=== PATIENT | male | born 1950 | race Caucasian/White ===

== ENCOUNTER → 2019-03-09 10:45 | Outpatient (BNVA) | payer MEDICARE, SELFPAY | PROVIDERS: Family Provider Nurse Practitioner Family; PCP Nurse Practitioner Family; Visit Provider Family Medicine | DX: I48.91 Unspecified atrial fibrillation (principal) | CPT/HCPCS: 85610 ==

== ENCOUNTER → 2019-03-23 11:34 | Outpatient (BNVA) | payer MEDICARE, SELFPAY | PROVIDERS: Family Provider Nurse Practitioner Family; PCP Nurse Practitioner Family; Visit Provider Nurse Practitioner Family | DX: I48.91 Unspecified atrial fibrillation (principal) | CPT/HCPCS: 85610 ==

== ENCOUNTER → 2019-03-30 09:06 | Outpatient (BNVA) | payer MEDICARE, SELFPAY | PROVIDERS: Family Provider Nurse Practitioner Family; PCP Nurse Practitioner Family; Visit Provider Nurse Practitioner Family | DX: I48.91 Unspecified atrial fibrillation (principal) | CPT/HCPCS: 85610 ==

== ENCOUNTER → 2019-04-13 09:33 | Outpatient (BNVA) | payer MEDICARE, SELFPAY | PROVIDERS: Visit Provider Family Medicine | DX: I48.91 Unspecified atrial fibrillation (principal) | CPT/HCPCS: 85610 ==

== ENCOUNTER → 2019-05-04 08:45 | Outpatient (BNVA) | payer MEDICARE, SELFPAY | PROVIDERS: Visit Provider Family Medicine | DX: I48.91 Unspecified atrial fibrillation (principal) | CPT/HCPCS: 85610 ==

== ENCOUNTER → 2019-05-11 07:59 | Outpatient (BNVA) | payer MEDICARE, SELFPAY | PROVIDERS: Visit Provider Family Medicine | DX: I48.91 Unspecified atrial fibrillation (principal) | CPT/HCPCS: 85610 ==

== ENCOUNTER → 2019-05-13 11:08 | Outpatient (BNVA) | payer MEDICARE, SELFPAY | PROVIDERS: Visit Provider Nurse Practitioner Family | DX: I48.91 Unspecified atrial fibrillation (principal); E78.5 Hyperlipidemia, unspecified; I12.9 Hypertensive chronic kidney disease with stage 1 through stage 4 chronic kidney disease, or unspecified chronic kidney disease; N18.9 Chronic kidney disease, unspecified | CPT/HCPCS: 80053; 80061; 85025 ==

== ENCOUNTER → 2019-05-18 10:20 | Outpatient (BNVA) | payer MEDICARE, SELFPAY | PROVIDERS: Visit Provider Nurse Practitioner Family | DX: I48.91 Unspecified atrial fibrillation (principal) | CPT/HCPCS: 85610 ==

== ENCOUNTER → 2019-05-25 08:13 | Outpatient (BNVA) | payer MEDICARE, SELFPAY | PROVIDERS: Visit Provider Nurse Practitioner Family | DX: I48.91 Unspecified atrial fibrillation (principal) | CPT/HCPCS: 85610 ==

== ENCOUNTER → 2019-06-01 09:40 | Outpatient (BNVA) | payer MEDICARE, SELFPAY | PROVIDERS: Visit Provider Family Medicine | DX: I48.91 Unspecified atrial fibrillation (principal) | CPT/HCPCS: 85610 ==

== ENCOUNTER → 2019-06-08 08:09 | Outpatient (BNVA) | payer MEDICARE, SELFPAY | PROVIDERS: Visit Provider Nurse Practitioner Family | DX: I48.91 Unspecified atrial fibrillation (principal) | CPT/HCPCS: 85610 ==

== ENCOUNTER → 2019-06-15 10:22 | Outpatient (BNVA) | payer MEDICARE, SELFPAY | PROVIDERS: Visit Provider Nurse Practitioner Family | DX: I48.91 Unspecified atrial fibrillation (principal) | CPT/HCPCS: 85610 ==

== ENCOUNTER → 2019-06-22 11:05 | Outpatient (BNVA) | payer SELFPAY | PROVIDERS: Visit Provider Nurse Practitioner Family | DX: I48.91 Unspecified atrial fibrillation (principal) | CPT/HCPCS: 85610 ==

== ENCOUNTER → 2019-07-06 09:38 | Outpatient (BNVA) | payer MEDICARE, SELFPAY | PROVIDERS: Visit Provider Nurse Practitioner Family | DX: I48.91 Unspecified atrial fibrillation (principal) | CPT/HCPCS: 85610 ==

== ENCOUNTER → 2019-07-13 11:10 | Outpatient (BNVA) | payer MEDICARE, SELFPAY | PROVIDERS: PCP Nurse Practitioner Family; Visit Provider Nurse Practitioner Family | DX: I48.91 Unspecified atrial fibrillation (principal) | CPT/HCPCS: 85610 ==

== ENCOUNTER → 2019-07-20 09:39 | Outpatient (BNVA) | payer MEDICARE, SELFPAY | PROVIDERS: PCP Nurse Practitioner Family; Visit Provider Nurse Practitioner Family | DX: I48.11 Longstanding persistent atrial fibrillation (principal) | CPT/HCPCS: 85610 ==

== ENCOUNTER → 2019-08-03 10:28 | Outpatient (BNVA) | payer MEDICARE, SELFPAY | PROVIDERS: PCP Nurse Practitioner Family; Visit Provider Nurse Practitioner Family | DX: I48.11 Longstanding persistent atrial fibrillation (principal) | CPT/HCPCS: 85610 ==

== ENCOUNTER → 2019-08-24 08:45 | Outpatient (BNVA) | payer MEDICARE, SELFPAY | PROVIDERS: PCP Nurse Practitioner Family; Visit Provider Nurse Practitioner Family | DX: I48.11 Longstanding persistent atrial fibrillation (principal) | CPT/HCPCS: 85610 ==

== ENCOUNTER → 2019-09-07 09:35 | Outpatient (BNVA) | payer MEDICARE, SELFPAY | PROVIDERS: PCP Nurse Practitioner Family; Visit Provider Nurse Practitioner Family | DX: I48.11 Longstanding persistent atrial fibrillation (principal) | CPT/HCPCS: 85610 ==

== ENCOUNTER → 2019-10-08 08:51 | Outpatient (BNVA) | payer MEDICARE, SELFPAY | PROVIDERS: PCP Nurse Practitioner Family; Visit Provider Nurse Practitioner Family | DX: I48.11 Longstanding persistent atrial fibrillation (principal) | CPT/HCPCS: 85610 ==

== ENCOUNTER → 2019-10-14 15:13 | Outpatient (BNVA) | payer MEDICARE, SELFPAY | PROVIDERS: PCP Nurse Practitioner Family; Referring Provider Family Medicine; Visit Provider Family Medicine | DX: I48.11 Longstanding persistent atrial fibrillation (principal) | CPT/HCPCS: 85610 ==

== ENCOUNTER → 2019-10-21 13:48 | Outpatient (BNVA) | payer MEDICARE, SELFPAY | PROVIDERS: PCP Nurse Practitioner Family; Visit Provider Nurse Practitioner Family | DX: E78.49 Other hyperlipidemia (principal) | CPT/HCPCS: 85610 ==

== ENCOUNTER → 2019-10-26 11:41 | Outpatient (BNVA) | payer MEDICARE, SELFPAY | PROVIDERS: PCP Nurse Practitioner Family; Visit Provider Nurse Practitioner Family | DX: I48.11 Longstanding persistent atrial fibrillation (principal) | CPT/HCPCS: 85610 ==

== ENCOUNTER → 2019-11-12 15:39 | Outpatient (BNVA) | payer MEDICARE, SELFPAY | PROVIDERS: PCP Nurse Practitioner Family; Visit Provider Nurse Practitioner Family | DX: E78.49 Other hyperlipidemia (principal); N18.9 Chronic kidney disease, unspecified; I48.11 Longstanding persistent atrial fibrillation | CPT/HCPCS: 80053; 80061; 85025; 85610 ==

== ENCOUNTER → 2019-12-14 09:17 | Outpatient (BNVA) | payer MEDICARE, OTHER, SELFPAY | PROVIDERS: PCP Nurse Practitioner Family; Visit Provider Nurse Practitioner Family | DX: I48.11 Longstanding persistent atrial fibrillation (principal) | CPT/HCPCS: 85610 ==

== ENCOUNTER → 2020-01-11 08:36 | Outpatient (BNVA) | payer MEDICARE, OTHER, SELFPAY | PROVIDERS: PCP Nurse Practitioner Family; Visit Provider Nurse Practitioner Family | DX: I48.11 Longstanding persistent atrial fibrillation (principal) | CPT/HCPCS: 85610 ==

== ENCOUNTER → 2020-02-08 10:16 | Outpatient (BNVA) | payer MEDICARE, OTHER, SELFPAY | PROVIDERS: PCP Nurse Practitioner Family; Visit Provider Nurse Practitioner Family | DX: I10 Essential (primary) hypertension (principal); I48.11 Longstanding persistent atrial fibrillation | CPT/HCPCS: 80053; 80061; 85025; 85610; G0103 ==

== ENCOUNTER → 2020-06-17 15:11 | Outpatient (BNVA) | payer MEDICARE, OTHER, SELFPAY | PROVIDERS: PCP Nurse Practitioner Family; Visit Provider Nurse Practitioner Family | DX: I10 Essential (primary) hypertension (principal); I48.11 Longstanding persistent atrial fibrillation; N18.2 Chronic kidney disease, stage 2 (mild); E78.49 Other hyperlipidemia | CPT/HCPCS: 80053; 80061; 84443; 85025; 85610 ==

== ENCOUNTER 2020-10-21 15:46 | Emergency (ER) | payer MEDICARE, SELFPAY ==
[2020-10-21 16:48] VITALS: BP 167/80; PULSE 65; RESP 19; TEMP 37.1; O2SAT 92; BMI 28.2
[2020-10-21 16:53] VITALS: BP 167/80; PULSE 64; RESP 18; O2SAT 94
--- NOTE | 2020-10-21 17:06 | W.ED.BACK ---
HPI - Back Pain/Injury General: Chief Complaint: Back Pain/Injury Stated Complaint: BACK PAIN LAST NIGHT Time Seen by Provider: 10/21/20 16:57 History of Present Illness: HPI Narrative: Patient complains about mid upper back pain that he thinks he may be injured it yesterday while he is walking. Hurts for him to bend or twist get about the chair. He denies any fall. Denies chest pain shortness of breath or related problems. MD elicited complaint: back pain and back injury Pertinent past history: prior back pain Onset (ago): hour(s) Timing: intermittent Severity: mild Similar Symptoms Previously: Yes Quality: aching Location: thoracic spine Radiation: none Exacerbating factors: movement and walking Relieving factors: immobilization Context: turning/twisting Associated symptoms: Reports no associated symptoms; Deny abdominal pain, chills, fever(s), nausea or vomiting Review of Systems Const: Denies: fever(s), chills or body aches Eyes: Denies: change in vision or blurry vision ENMT: Denies: throat pain or nasal congestion Card: Denies: chest pain or dyspnea on exertion Resp: Denies: dyspnea, productive cough or non-productive cough GI: Denies: abdominal pain, nausea or vomiting : Denies: difficulty urinating Musc: Reports: back pain; Denies: extremity pain Skin/Breast: Denies: rash Neuro: Denies: headache(s) Psych: Denies: anxiety or depression Ankit/Lymph: Denies: easy bruising PFSH ED PFSH: Medical History CAD (coronary artery disease) CHF (congestive heart failure) CKD (chronic kidney disease) COPD (chronic obstructive pulmonary disease) Depression Erectile dysfunction History of CVA (cerebrovascular accident) Hx pulmonary embolism Hyperlipidemia Pulmonary embolism Surgical History Hx of angioplasty Hx of appendectomy Hx of hernia repair Hx of urethrotomy Social History Smoking and tobacco status: never smoked Second hand smoke exposure: No Alcohol intake: never Lives independently: Yes Household members: significant other Marital status: Current occupational status: disabled History of recent travel: No Current gender identity: Male Physical Exam Const: COMMON NORMALS: no acute distress, average body habitus and patient oriented x3 HENMT: COMMON NORMALS: normocephalic HEAD & SCALP: normal to inspection and normocephalic FACE & SINUS: normal facial exam OTHER: Hard of hearing Eye: COMMON NORMALS: conjunctivae normal GENERAL EYE: appearance normal, both eyes and all related structures CONJUNCTIVA: Yes conjunctivae normal Neck/C-Spine: COMMON NORMALS: no JVD Chest: COMMONS NORMALS: normal inspection of the chest Resp: COMMON NORMALS: normal respiratory effort and clear to auscultation bilaterally AUSCULTATION: clear to auscultation bilaterally Cardio: COMMON NORMALS: no JVD, regular rate and regular rhythm RATE: regular rate RHYTHM: regular rhythm GI: COMMON NORMALS: Normal to inspection, nondistended, normoactive bowel sounds present Back/Pelvis: THORACIC SPINE/UPPER BACK: Yes thoracic spinal tenderness Extremity: COMMON NORMALS: normal to inspection and full ROM Neuro: COMMON NORMALS: patient oriented x3 Course Vital Signs: Vital signs: Vital Signs Temperature 98.7 F 10/21/20 16:48 Pulse Rate 64 10/21/20 16:53 Respiratory Rate 18 10/21/20 16:53 Blood Pressure 167/80 10/21/20 16:53 Pulse Oximetry 94 10/21/20 16:53 MDM - Back Pain/Injury MDM Narrative: Medical decision making narrative: Patient with midthoracic back pain possible related to turning twisting yesterday when he is picking something up. Patient like some pain medication. Discharge Plan Discharge Patient Disposition: Home Clinical Impression: Thoracic back pain Qualifiers: Chronicity: chronic Back pain laterality: midline Qualified Code(s): M54.6 - Pain in thoracic spine Condition: Stable Prescriptions: New Celebrex 100 mg capsule 100 mg PO BID Qty: 20 RF: 0 No Action atorvastatin 40 mg tablet 40 mg PO DAILY Qty: 90 RF: 1 clopidogrel 75 mg tablet 75 mg PO DAILY Qty: 90 RF: 1 furosemide 20 mg tablet 20 mg PO DAILY Qty: 90 RF: 1 isosorbide mononitrate 60 mg tablet extended release 24 hr 60 mg PO DAILY Qty: 90 RF: 1 metoprolol tartrate 25 mg tablet 25 mg PO BID Qty: 180 RF: 1 nitroglycerin [Nitrostat] 0.4 mg tablet, sublingual 0.4 mg SUBLINGUAL Q5M PRNRF: 0 potassium chloride 10 mEq tablet extended release See Rx Instructions .ROUTE .COMPLEX Qty: 90 RF: 3 losartan 50 mg tablet 50 mg PO DAILY 90 Days Qty: 90 RF: 3 warfarin 2 mg tablet See Rx Instructions mg .ROUTE .COMPLEX Qty: 104 RF: 1 Discharge Orders: Discharge ED (Routine); Ordered 10/21/20 Ordered By: Devon Alvarez Referrals: Justyna Alvarado FNP [Primary Care Provider] - Discharge Diet: Usual diet Discharge Activity: Increase activity as tolerated Patient Instructions: Back Pain (ED) Activity Restrictions/Additional Instructions: Follow-up with medical provider as directed. Take medications as prescribed. Return to the ER or your medical provider if condition worsens. Please read and understand discharge instructions. If any questions ask please. Coding Level of Care Code ED [employer] for Milana Cárdenas Exam Comprehensive
--- NOTE | 2020-10-21 17:07 | XRR_ITS ---
PROCEDURE INFORMATION: Exam: XR Thoracic Spine Exam date and time: 10/21/2020 5:07 PM Age: 70 years old Clinical indication: Pain in thoracic spine TECHNIQUE: Imaging protocol: XR of the thoracic spine. Views: 3 views. COMPARISON: CR Chest 1 [place] [id number] 08/04/2017 6:37 PM FINDINGS: Bones/joints: No acute thoracic fractures. Unremarkable alignment.The thoracic spine demonstrates moderate degenerative changes at multiple levels. Soft tissues: Unremarkable. Heart/Mediastinum: Cardiac enlargement. Vasculature: Atherosclerotic plaques of thoracic aorta. XR/XR thoracic spine 3V* [id number] IMPRESSION: Negative for acute thoracic spine fracture.
[2020-10-21 18:02] VITALS: BP 167/80; PULSE 64; RESP 18; O2SAT 94
[2020-10-21] MEDS: predniSONE 10 mg Tablet PO (18:02)
[2020-10-21] MEDS: TRAMadol 50 mg Tablet PO (18:02)
== END 2020-10-21 18:03 | disposition home or self-care (01) ==
PROVIDERS: Emergency Provider Nurse Practitioner Family; PCP Nurse Practitioner Family
DX: M54.6 Pain in thoracic spine (principal); Z79.01 Long term (current) use of anticoagulants; Z79.02 Long term (current) use of antithrombotics/antiplatelets; I25.10 Atherosclerotic heart disease of native coronary artery without angina pectoris; I50.9 Heart failure, unspecified; J44.9 Chronic obstructive pulmonary disease, unspecified; Z86.73 Personal history of transient ischemic attack (TIA), and cerebral infarction without residual deficits; Z86.711 Personal history of pulmonary embolism; E78.5 Hyperlipidemia, unspecified
CPT/HCPCS: 72072; 99283; J7512

== ENCOUNTER → 2020-11-30 10:01 | Outpatient (BNVA) | payer MEDICARE, SELFPAY | PROVIDERS: PCP Nurse Practitioner Family; Visit Provider Nurse Practitioner Family | DX: I10 Essential (primary) hypertension (principal); R10.11 Right upper quadrant pain; R35.0 Frequency of micturition; N18.2 Chronic kidney disease, stage 2 (mild); I48.11 Longstanding persistent atrial fibrillation; I50.9 Heart failure, unspecified; E78.49 Other hyperlipidemia; I25.10 Atherosclerotic heart disease of native coronary artery without angina pectoris | CPT/HCPCS: 80053; 80061; 81003; 82607; 84443; 85025; 85610; 87086 ==

== ENCOUNTER → 2020-12-07 08:54 | Outpatient (BNVA) | payer MEDICARE, SELFPAY | PROVIDERS: PCP Nurse Practitioner Family; Visit Provider Nurse Practitioner Family | DX: I48.11 Longstanding persistent atrial fibrillation (principal) | CPT/HCPCS: 85610 ==

== ENCOUNTER → 2020-12-13 08:37 | Outpatient (BNVA) | payer MEDICARE, SELFPAY | PROVIDERS: PCP Nurse Practitioner Family; Visit Provider Nurse Practitioner Family | DX: I48.11 Longstanding persistent atrial fibrillation (principal) | CPT/HCPCS: 85610 ==

== ENCOUNTER → 2020-12-21 08:27 | Outpatient (BNVA) | payer MEDICARE, SELFPAY | PROVIDERS: PCP Nurse Practitioner Family; Visit Provider Nurse Practitioner Family | DX: I48.11 Longstanding persistent atrial fibrillation (principal); N39.0 Urinary tract infection, site not specified | CPT/HCPCS: 81003; 85610; 87077; 87086; 87184 ==

== ENCOUNTER → 2020-12-28 09:00 | Outpatient (BNVA) | payer MEDICARE, SELFPAY | PROVIDERS: PCP Nurse Practitioner Family; Visit Provider Family Medicine | DX: I48.11 Longstanding persistent atrial fibrillation (principal) | CPT/HCPCS: 85610 ==

== ENCOUNTER → 2021-01-11 08:15 | Outpatient (BNVA) | payer MEDICARE, SELFPAY | PROVIDERS: PCP Nurse Practitioner Family; Visit Provider Nurse Practitioner Family | DX: N39.0 Urinary tract infection, site not specified (principal); I48.11 Longstanding persistent atrial fibrillation | CPT/HCPCS: 81003; 85610; 87077; 87086; 87184 ==

== ENCOUNTER → 2021-01-25 09:28 | Outpatient (BNVA) | payer MEDICARE, SELFPAY | PROVIDERS: PCP Nurse Practitioner Family; Visit Provider Nurse Practitioner Family | DX: I48.11 Longstanding persistent atrial fibrillation (principal) | CPT/HCPCS: 85610 ==

== ENCOUNTER → 2021-02-22 14:16 | Outpatient (BNVA) | payer MEDICARE, SELFPAY | PROVIDERS: PCP Nurse Practitioner Family; Visit Provider Nurse Practitioner Family | DX: I48.11 Longstanding persistent atrial fibrillation (principal); R05.8 Other specified cough | CPT/HCPCS: 71046; 85610 ==

== ENCOUNTER → 2021-03-15 08:30 | Outpatient (BNVA) | payer MEDICARE, SELFPAY | PROVIDERS: PCP Nurse Practitioner Family; Visit Provider Nurse Practitioner Family | DX: I48.11 Longstanding persistent atrial fibrillation (principal) | CPT/HCPCS: 85610 ==

== ENCOUNTER → 2021-04-14 08:22 | Outpatient (BNVA) | payer MEDICARE, SELFPAY | PROVIDERS: PCP Nurse Practitioner Family; Visit Provider Nurse Practitioner Family | DX: I48.91 Unspecified atrial fibrillation (principal) | CPT/HCPCS: 85610 ==

== ENCOUNTER → 2021-04-18 08:24 | Outpatient (BNVA) | payer MEDICARE, SELFPAY | PROVIDERS: PCP Nurse Practitioner Family; Visit Provider Nurse Practitioner Family | DX: I48.91 Unspecified atrial fibrillation (principal) | CPT/HCPCS: 85610 ==

== ENCOUNTER → 2021-05-16 08:17 | Outpatient (BNVA) | payer MEDICARE, SELFPAY | PROVIDERS: PCP Nurse Practitioner Family; Visit Provider Nurse Practitioner Family | DX: I48.91 Unspecified atrial fibrillation (principal) | CPT/HCPCS: 85610 ==

== ENCOUNTER 2021-05-29 08:02 | Outpatient (CLI) | payer MEDICARE, SELFPAY ==
--- NOTE | 2021-05-29 08:08 | USCV_ITS ---
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 Features of mild peripheral artery disease involving the distal vessels on the right side 2. No significant arterial obstruction on the left side 3. Features of extensive arterial sclerosis. 4. Abnormal PVR waveforms, most likely due to technical issues No similar previous studies are available for comparison Dr Quoc Franklin MD [facility] (Electronically Signed) Final Date: 30 May 2021 09:36 S
== END 2021-05-29 08:03 | disposition home or self-care (01) ==
LOC: RAD 08:04
PROVIDERS: PCP Nurse Practitioner Family; Visit Provider Podiatrist Foot & Ankle Surgery
DX: R09.89 Other specified symptoms and signs involving the circulatory and respiratory systems (principal); I73.9 Peripheral vascular disease, unspecified
CPT/HCPCS: 93923

== ENCOUNTER → 2021-05-30 09:40 | Outpatient (BNVA) | payer MEDICARE, SELFPAY | PROVIDERS: PCP Nurse Practitioner Family; Visit Provider Family Medicine | DX: I48.11 Longstanding persistent atrial fibrillation (principal) | CPT/HCPCS: 85610 ==

== ENCOUNTER → 2021-06-13 11:40 | Outpatient (BNVA) | payer MEDICARE, SELFPAY | PROVIDERS: PCP Nurse Practitioner Family; Visit Provider Podiatrist Foot & Ankle Surgery | DX: N18.2 Chronic kidney disease, stage 2 (mild) (principal); I73.9 Peripheral vascular disease, unspecified; L60.3 Nail dystrophy; I48.91 Unspecified atrial fibrillation | CPT/HCPCS: 11721; 85610 ==

== ENCOUNTER → 2021-06-28 08:25 | Outpatient (BNVA) | payer MEDICARE, SELFPAY | PROVIDERS: PCP Nurse Practitioner Family; Visit Provider Nurse Practitioner Family | DX: I48.91 Unspecified atrial fibrillation (principal) | CPT/HCPCS: 85610 ==

== ENCOUNTER → 2021-08-09 11:03 | Outpatient (BNVA) | payer MEDICARE, SELFPAY | PROVIDERS: PCP Nurse Practitioner Family; Visit Provider Family Medicine | DX: I48.91 Unspecified atrial fibrillation (principal) | CPT/HCPCS: 85610 ==

== ENCOUNTER → 2021-09-05 08:48 | Outpatient (BNVA) | payer MEDICARE, SELFPAY | PROVIDERS: PCP Nurse Practitioner Family; Visit Provider Family Medicine | DX: I48.91 Unspecified atrial fibrillation (principal) | CPT/HCPCS: 85610 ==

== ENCOUNTER → 2021-09-06 14:54 | Outpatient (BNVA) | payer MEDICARE, SELFPAY | PROVIDERS: PCP Nurse Practitioner Family; Visit Provider Nurse Practitioner Family | DX: E78.49 Other hyperlipidemia (principal); I10 Essential (primary) hypertension; I48.11 Longstanding persistent atrial fibrillation | CPT/HCPCS: 80053; 80061; 85025 ==

== ENCOUNTER → 2021-09-26 09:36 | Outpatient (BNVA) | payer MEDICARE, SELFPAY | PROVIDERS: PCP Nurse Practitioner Family; Visit Provider Nurse Practitioner Family | DX: I48.91 Unspecified atrial fibrillation (principal); I48.11 Longstanding persistent atrial fibrillation | CPT/HCPCS: 85610 ==

== ENCOUNTER → 2021-10-03 11:35 | Outpatient (BNVA) | payer MEDICARE, SELFPAY | PROVIDERS: PCP Nurse Practitioner Family; Visit Provider Podiatrist Foot & Ankle Surgery | DX: N18.2 Chronic kidney disease, stage 2 (mild) (principal); I73.9 Peripheral vascular disease, unspecified; L60.3 Nail dystrophy | CPT/HCPCS: 11721 ==

== ENCOUNTER → 2021-10-27 15:51 | Outpatient (BNVA) | payer MEDICARE, SELFPAY | PROVIDERS: PCP Nurse Practitioner Family; Visit Provider Nurse Practitioner Family | DX: I48.11 Longstanding persistent atrial fibrillation (principal); I25.10 Atherosclerotic heart disease of native coronary artery without angina pectoris; I50.9 Heart failure, unspecified; I10 Essential (primary) hypertension; N18.2 Chronic kidney disease, stage 2 (mild); E78.49 Other hyperlipidemia | CPT/HCPCS: 85610 ==

== ENCOUNTER → 2021-11-23 14:44 | Outpatient (BNVA) | payer MEDICARE, SELFPAY | PROVIDERS: PCP Nurse Practitioner Family; Visit Provider Nurse Practitioner Family | DX: I48.91 Unspecified atrial fibrillation (principal) | CPT/HCPCS: 85610 ==

== ENCOUNTER → 2022-01-30 09:06 | Outpatient (BNVA) | payer MEDICARE, SELFPAY | PROVIDERS: PCP Nurse Practitioner Family; Visit Provider Podiatrist Foot & Ankle Surgery | DX: I73.9 Peripheral vascular disease, unspecified (principal); N18.2 Chronic kidney disease, stage 2 (mild); L60.3 Nail dystrophy | CPT/HCPCS: 11721 ==

== ENCOUNTER → 2022-02-27 10:35 | Outpatient (BNVA) | payer MEDICARE, SELFPAY | PROVIDERS: PCP Nurse Practitioner Family; Visit Provider Internal Medicine Cardiovascular Disease | DX: I25.10 Atherosclerotic heart disease of native coronary artery without angina pectoris (principal); I48.11 Longstanding persistent atrial fibrillation; I13.0 Hypertensive heart and chronic kidney disease with heart failure and stage 1 through stage 4 chronic kidney disease, or unspecified chronic kidney disease; N18.2 Chronic kidney disease, stage 2 (mild); I50.9 Heart failure, unspecified; Z87.891 Personal history of nicotine dependence; E78.49 Other hyperlipidemia; I69.359 Hemiplegia and hemiparesis following cerebral infarction affecting unspecified side | CPT/HCPCS: 80048; 83880; 93005; 99215 ==

== ENCOUNTER → 2022-03-06 10:26 | Outpatient (BNVA) | payer MEDICARE, SELFPAY | PROVIDERS: PCP Nurse Practitioner Family; Visit Provider Nurse Practitioner Family | DX: I50.9 Heart failure, unspecified (principal) | CPT/HCPCS: 85610 ==

== ENCOUNTER 2022-03-15 14:01 | Outpatient (CLI) | payer MEDICARE, SELFPAY ==
--- NOTE | 2022-03-15 15:15 | USCV_ITS ---
SunniPierre rob Age: 72 Gender: M : 1950 Exam Date: 03/15/2022 14:31 Ordering Phys: Quoc Franklin MD Technologist: Calos Jaime Exam Location: [facility] [place] Indication: cva BP: 134 / 74 HR: 40 Rhythm: Sinus Technical Quality: Adequate MEASUREMENTS (Male / Female) Normal Values 2D ECHO LV Diastolic Diameter PLAX 6.5 cm 4.2 - 5.9 / 3.9 - 5.3 cm LV Systolic Diameter PLAX 3.6 cm IVS Diastolic Thickness 1.6 cm 0.6 - 1.0 / 0.6 - 0.9 cm IVS Systolic Thickness 1.9 cm LVPW Diastolic Thickness 1.0 cm 0.6 - 1.0 / 0.6 - 0.9 cm LVPW Systolic Thickness 1.6 cm LVOT Diameter 2.1 cm LV Ejection Fraction 2D Teich 64.3 % LV Ejection Fraction MOD 2C 48.2 % LV Ejection Fraction 2C AL 48.1 % LA Diameter 4.6 cm Aorta at Sinotubular Diameter 3.1 cm M-MODE Aortic Annulus Diameter 4.1 cm LA Ao Ratio MM 1.2 MV E Point Septal Separation 1.7 cm DOPPLER AV Peak Velocity 139.0 cm/s LVOT Peak Velocity 92.0 cm/s AV Area Cont Eq vti 2.3 cm squared AV Area Cont Eq pk 2.2 cm squared MV Area PHT 5.0 cm squared Mitral E to A Ratio 0.4 MV E' Velocity 29.0 cm/s Mitral E to MV E' Ratio 19.9 Mitral E to LV E' Lateral Ratio 30.9 Mitral E to LV E' Septal Ratio 14.7 TR Peak Velocity 203.0 cm/s TR Peak Gradient 16.5 mmHg TV Peak E Velocity 134.0 cm/s Right Atrial Pressure 3.0 mmHg Pulmonary Artery Systolic Pressu 19.5 mmHg RV Acceleration Time 0.0 s FINDINGS Left Ventricle Mild to moderate left ventricular hypertrophy. Diffuse hypokinesia of the left tunical, more so of the apex. LV ejection fraction around 40 to 45%(visual) Right Ventricle The right ventricle is normal in size and function. Right Atrium Possibly of normal size Left Atrium Mildly increased left atrial size. Mitral Valve Thickened mitral valve. Mild mitral annular calcification. Moderate mitral valve regurgitation. Aortic Valve Thickened aortic valve. Tricuspid Valve Trace tricuspid valve regurgitation. Pulmonic Valve Pulmonic valve not well visualized. Pericardium Normal pericardium without effusion. Aorta Normal aortic annulus size. IVC Inferior vena cava not visualized. CONCLUSIONS Mild to moderate left ventricular hypertrophy. Diffuse hypokinesia of the left tunical, more so of the apex. LV ejection fraction around 40 to 45%(visual). Mildly increased left atrial size. Thickened mitral valve. Mild mitral annular calcification. Moderate mitral valve regurgitation. Thickened aortic valve. Trace tricuspid valve regurgitation. Estimated pulmonary artery peak systolic pressure 20 mmHg There is no pericardial effusion. Compared to the previous study from 12/27/2016, there is some improvement in the LV ejection fraction Dr Quoc Franklin MD [facility] (Electronically Signed) Final Date: 15 March 2022 20:25 S
== END 2022-03-15 14:02 | disposition home or self-care (01) ==
PROVIDERS: PCP Nurse Practitioner Family; Visit Provider Internal Medicine Cardiovascular Disease
DX: I42.9 Cardiomyopathy, unspecified (principal); I63.9 Cerebral infarction, unspecified; I08.3 Combined rheumatic disorders of mitral, aortic and tricuspid valves
CPT/HCPCS: 93306

== ENCOUNTER → 2022-03-21 09:16 | Outpatient (BNVA) | payer MEDICARE, SELFPAY | PROVIDERS: PCP Nurse Practitioner Family; Visit Provider Nurse Practitioner Family | DX: I50.9 Heart failure, unspecified (principal) | CPT/HCPCS: 85610 ==

== ENCOUNTER → 2022-03-30 10:22 | Outpatient (BNVA) | payer MEDICARE, SELFPAY | PROVIDERS: PCP Nurse Practitioner Family; Visit Provider Nurse Practitioner Family | DX: I50.9 Heart failure, unspecified (principal); Z87.891 Personal history of nicotine dependence | CPT/HCPCS: 99214 ==

== ENCOUNTER → 2022-04-10 09:23 | Outpatient (BNVA) | payer MEDICARE, SELFPAY | PROVIDERS: PCP Nurse Practitioner Family; Visit Provider Nurse Practitioner Family | DX: I48.11 Longstanding persistent atrial fibrillation (principal); I50.9 Heart failure, unspecified | CPT/HCPCS: 80048; 85610 ==

== ENCOUNTER → 2022-05-01 08:20 | Outpatient (BNVA) | payer MEDICARE, SELFPAY | PROVIDERS: PCP Nurse Practitioner Family; Visit Provider Nurse Practitioner Family | DX: I50.9 Heart failure, unspecified (principal); I48.11 Longstanding persistent atrial fibrillation; I25.10 Atherosclerotic heart disease of native coronary artery without angina pectoris; Z79.01 Long term (current) use of anticoagulants; Z87.891 Personal history of nicotine dependence | CPT/HCPCS: 99214 ==

== ENCOUNTER → 2022-05-15 11:09 | Outpatient (BNVA) | payer MEDICARE, SELFPAY | PROVIDERS: PCP Nurse Practitioner Family; Visit Provider Nurse Practitioner Family | DX: Z87.898 Personal history of other specified conditions (principal); I50.9 Heart failure, unspecified; R04.0 Epistaxis; J18.9 Pneumonia, unspecified organism; N39.0 Urinary tract infection, site not specified; R41.0 Disorientation, unspecified; Z01.810 Encounter for preprocedural cardiovascular examination | CPT/HCPCS: 80048; 81003; 83880; 85025; 85610; 87086 ==

== ENCOUNTER → 2022-05-22 10:34 | Outpatient (BNVA) | payer MEDICARE, SELFPAY | PROVIDERS: PCP Nurse Practitioner Family; Visit Provider Podiatrist Foot & Ankle Surgery | DX: I73.9 Peripheral vascular disease, unspecified (principal); N18.2 Chronic kidney disease, stage 2 (mild); L60.3 Nail dystrophy | CPT/HCPCS: 11721 ==

== ENCOUNTER → 2022-05-29 08:34 | Outpatient (BNVA) | payer MEDICARE, SELFPAY | PROVIDERS: PCP Nurse Practitioner Family; Visit Provider Nurse Practitioner Family | DX: I25.10 Atherosclerotic heart disease of native coronary artery without angina pectoris (principal); I48.11 Longstanding persistent atrial fibrillation; Z87.891 Personal history of nicotine dependence; I13.0 Hypertensive heart and chronic kidney disease with heart failure and stage 1 through stage 4 chronic kidney disease, or unspecified chronic kidney disease; N18.9 Chronic kidney disease, unspecified; I50.20 Unspecified systolic (congestive) heart failure; Z79.01 Long term (current) use of anticoagulants | CPT/HCPCS: 99214 ==

== ENCOUNTER → 2022-06-27 15:26 | Outpatient (BNVA) | payer MEDICARE, SELFPAY | PROVIDERS: PCP Nurse Practitioner Family; Visit Provider Nurse Practitioner Family | DX: I48.91 Unspecified atrial fibrillation (principal); I50.9 Heart failure, unspecified | CPT/HCPCS: 85610 ==

== ENCOUNTER → 2022-07-13 12:32 | Outpatient (BNVA) | payer MEDICARE, SELFPAY | PROVIDERS: PCP Nurse Practitioner Family; Visit Provider Nurse Practitioner Family | DX: I50.9 Heart failure, unspecified (principal); I48.91 Unspecified atrial fibrillation | CPT/HCPCS: 85610 ==

== ENCOUNTER → 2022-08-30 09:02 | Outpatient (BNVA) | payer MEDICARE, SELFPAY | PROVIDERS: PCP Nurse Practitioner Family; Visit Provider Podiatrist Foot & Ankle Surgery | DX: I73.9 Peripheral vascular disease, unspecified (principal); L60.3 Nail dystrophy; N18.2 Chronic kidney disease, stage 2 (mild) | CPT/HCPCS: 11721 ==

== ENCOUNTER → 2022-09-19 09:07 | Outpatient (BNVA) | payer MEDICARE, SELFPAY | PROVIDERS: PCP Nurse Practitioner Family; Visit Provider Nurse Practitioner Family | DX: I48.91 Unspecified atrial fibrillation (principal) | CPT/HCPCS: 85610 ==

== ENCOUNTER 2022-09-23 13:53 | Emergency (ER) | payer MEDICARE, SELFPAY ==
--- NOTE | 2022-09-23 13:54 | ED_ITS ---
HPI - Altered Mental Status General: Chief Complaint: Altered Mental Status Stated Complaint: AMS, weakness Time Seen by Provider: 09/23/22 13:54 Limitations: altered mental status History of Present Illness: Mr. Key is a 72-year-old gentleman with, per chart review, CAD CKD CHF COPD history of stroke history of PE presenting the emergency department for altered mental status. The patient himself is pleasant but is quite unsure why he is here. Per EMS report family thought patient was more confused over the past 3 days. He has also been more short of breath. They found him on the floor. History otherwise limited by mental state. Review of Systems General: Reports: ROS unobtainable due to mental status PFSH ED PFSH: Medical History CAD (coronary artery disease) CHF (congestive heart failure) CKD (chronic kidney disease) COPD (chronic obstructive pulmonary disease) Depression Erectile dysfunction History of CVA (cerebrovascular accident) History of urinary retention Hx pulmonary embolism Hyperlipidemia Pulmonary embolism Surgical History Hx of angioplasty Hx of appendectomy Hx of hernia repair Hx of urethrotomy Family History Mother , IN HER 60'S of unknown cause Chronic kidney disease (CKD) Diabetes Father , IN HIS 70'S Cancer Brother CAD (coronary artery disease) Denies family history of Clotting disorder Dementia Suicide Anesthesia complication Bleeding disorder Lung disease Stroke Social History Smoking and tobacco status: former smoker Second hand smoke exposure: No Smoking risk assessment/counseling performed?: No Alcohol intake: never Desire information about alcohol rehabilitation?: No Counseling given: No Substance/Drug Use: never Desire information about substance/drug rehabilitation?: No Counseling given: No Adopted: No Caregiver/support person: No Lives independently: Yes Household members: none Marital status: Single Current occupational status: disabled Do you think of yourself as: Straight/Heterosexual Current gender identity: Male Special miroslava needs: No Agree to transfusion: Yes Physical Exam Const: COMMON NORMALS: alert GENERAL APPEARANCE: cooperative and well developed HENMT: COMMON NORMALS: normocephalic and atraumatic HEAD & SCALP: normocephalic and atraumatic OTHER: No ruggiero signs or raccoon eyes. No hemotympanum. No otorrhea or rhinorrhea. Jaw alignment normal. Dentition baseline. No obvious bony step-offs. No septal hematoma. No evidence of ocular entrapment. Eye: COMMON NORMALS: conjunctivae normal CONJUNCTIVA: Yes conjunctivae normal SCLERA: sclerae normal Neck/C-Spine: COMMON NORMALS: supple GENERAL: Yes trachea midline Resp: EFFORT & INSPECTION: Yes able to speak in complete sentences AUSCULTATION: diminished lung sounds Cardio: COMMON NORMALS: regular rate and regular rhythm RATE: regular rate RHYTHM: regular rhythm GI: COMMON NORMALS: Soft to palpation PALPATION: Yes Soft to palpation and No Tenderness to palpation present (GI) Extremity: NARRATIVE EXTREMITY EXAM: Bilateral foot pain and mild ecchymosis GENERAL: Yes normal exam except as noted and No edema Neuro: COMMON NORMALS: moves all extremities SENSORIUM/ORIENTATION: Yes alert and Yes Orientation impaired Psych: COMMON NORMALS: cooperative Course Vital Signs: Vital signs: Vital Signs Temperature 97.6 F 09/23/22 13:55 Pulse Rate 87 09/23/22 18:00 Respiratory Rate 18 09/23/22 18:17 Blood Pressure 148/96 09/23/22 18:17 Pulse Oximetry 97 09/23/22 18:00 Oxygen Delivery Me thod Room Air 09/23/22 16:00 MDM - Altered Mental Status Medical Decision Making 72-year-old gentleman presenting with mental status change. Onset approximately 3 days ago. He was found on the ground however no evidence of trauma on head to toe exam. No evidence of focal neurodeficits. Outside of tPA window. EKG demonstrates sinus rhythm with left axis deviation and interventricular conduction delay. No STEMI. Labs with leukocytosis, normal hemoglobin and platelet count. Metabolic panel with mild evidence of dehydration. Negative range 2-hour delta troponin. Likely UTI present. Entarovirus/rhinovirus present Imaging negative for acute traumatic injury. Chest x-ray with no lobar consolidation or pneumothorax. Patient treated with antibiotics. I discussed disposition options with patient and family. He prefers trial of outpatient management. The results of ED evaluation were discussed with the patient including prescriptions and/or symptomatic cares (if applicable) including appropriate and responsible use, followup plan, and return precautions. The patient verbalized understanding and felt safe for discharge. Medical Records I reviewed the patient's medical records. Lab Data I reviewed the patient's lab results. 09/23/22 14:20 09/23/22 14:20 Radiology Impressions Cervical Spine CT 09/23/22 14:09 IMPRESSION: 1. No CT evidence of acute cervical spine traumatic injury. 2. Additional findings, as above. Chest X-Ray 09/23/22 14:09 IMPRESSION: No acute findings. Head CT 09/23/22 14:09 IMPRESSION: 1. No CT evidence of acute intracranial pathology. 2. Additional findings, as above. Foot X-Ray 09/23/22 15:42 IMPRESSION: No acute findings. Laboratory Results WBC 16.0 10^3/uL (4.0-10.0) H 09/23/22 14:20 RBC 4.34 10^6/uL (4.1-5.3) 09/23/22 14:20 Hgb 14.0 g/dL (11.7-16.6) 09/23/22 14:20 Hct 41.9 % (42.0-52.0) L 09/23/22 14:20 MCV 96.5 fl (80-94) H 09/23/22 14:20 MCH 32.3 pg (28.0-34.0) 09/23/22 14:20 MCHC 33.4 g/dL (30.0-36.0) 09/23/22 14:20 RDW 12.4 % (12.1-15.1) 09/23/22 14:20 Plt Count 309 10^3/cmm (130-400) 09/23/22 14:20 MPV 9.7 fL (7.4-10.4) 09/23/22 14:20 Neut % (Auto) 77.9 % 09/23/22 14:20 Lymph % (Auto) 12.8 % 09/23/22 14:20 Childress % (Auto) 8.5 % 09/23/22 14:20 Eos % (Auto) 0.1 % 09/23/22 14:20 Baso % (Auto) 0.4 % 09/23/22 14:20 Neut # (Auto) 12.47 10^3/uL (1.8-7.7) H 09/23/22 14:20 Lymph # (Auto) 2.1 10^3/uL (0.8-4.8) 09/23/22 14:20 Childress # (Auto) 1.4 10^3/uL (0.2-0.9) H 09/23/22 14:20 Eos # (Auto) 0.0 10^3/uL (0.0-0.8) 09/23/22 14:20 Baso # (Auto) 0.1 10^3/uL (0.0-0.1) 09/23/22 14:20 Nucleated RBC % (auto) 0 % 09/23/22 14:20 Nucleated RBCs # 0.0 /100WBC 09/23/22 14:20 PT 20.20 SECONDS (12.1-14.9) H 09/23/22 14:20 INR 1.66 (0.8-1.2) H 09/23/22 14:20 APTT 34.2 SECONDS (23.9-36.7) 09/23/22 14:20 Sodium 137 mmol/L (136-145) 09/23/22 14:20 Potassium 3.9 mmol/L (3.5-5.1) 09/23/22 14:20 Chloride 103 mmol/L (98-107) 09/23/22 14:20 Carbon Dioxide 18 mmol/L (22-29) L 09/23/22 14:20 Anion Gap 19.9 (5-19) H 09/23/22 14:20 BUN 9 mg/dL (8-23) 09/23/22 14:20 Creatinine 1.1 mg/dL (0.7-1.2) 09/23/22 14:20 GFR Calculation Not Reportable 09/23/22 14:20 Glucose 113 mg/dL (65-115) 09/23/22 14:20 Calculated Osmolality 283 mOsm/kg (285-295) L 09/23/22 14:20 Lactic Acid 1.8 mmol/L (0.5-2.2) 09/23/22 14:25 Calcium 8.5 mg/dL (8.5-10.5) 09/23/22 14:20 Total Bilirubin 0.7 mg/dL (0.15-1.2) 09/23/22 14:20 AST 31 U/L (0-40) 09/23/22 14:20 ALT 19 U/L (0-41) 09/23/22 14:20 Alkaline Phosphatase 67 U/L (40-130) 09/23/22 14:20 Troponin T Baseline 29 ng/L (0-15) H 09/23/22 14:20 Troponin T 120 Minute 25.20 ng/L (0-15) H 09/23/22 16:29 Delta Troponin T -3.80 ABS# (0-10) L 09/23/22 16:29 C-Reactive Protein 20.9 mg/L (0.0-4.9) H 09/23/22 14:20 NT-Pro-B Natriuret Pep 2566 pg/mL (0-125) H 09/23/22 14:20 Total Protein 6.2 g/dL (6.6-8.7) L 09/23/22 14:20 Albumin 3.7 g/dL (3.5-5.2) 09/23/22 14:20 Globulin 2.5 g/dL (1.3-4.6) 09/23/22 14:20 Procalcitonin 0.04 ng/mL (0-0.5) 09/23/22 14:20 Urine Color Dark yellow (Yellow) 09/23/22 15:50 Urine Appearance Hazy (CLEAR) A 09/23/22 15:50 Urine pH 5 (5-7) 09/23/22 15:50 Ur Specific [place] 1.020 (1.005-1.030) 09/23/22 15:50 Urine Protein 1+ (Negative) H 09/23/22 15:50 Urine Glucose (UA) Norm (Normal) 09/23/22 15:50 Urine Ketones Negative (Negative) 09/23/22 15:50 Urine Blood 3+ (Negative) H 09/23/22 15:50 Urine Nitrate Positive (Negative) H 09/23/22 15:50 Urine Bilirubin Neg (Negative) 09/23/22 15:50 Urine Urobilinogen Norm mg/dL (Negative) 09/23/22 15:50 Ur Leukocyte Esterase 2+ (Negative) H 09/23/22 15:50 Urine RBC 10-15 /hpf (0-2) H 09/23/22 15:50 Urine WBC 40-55 /hpf (0-5) H 09/23/22 15:50 Ur Squamous Epith Cells 5-10 /hpf (0-5) H 09/23/22 15:50 Amorphous Sediment Not Reportable 09/23/22 15:50 Urine Bacteria 3+ /hpf (NONE) H 09/23/22 15:50 Nasal Influ A H1 2009 PCR Not detected (NOT DETECT) 09/23/22 15:06 Adenovirus (PCR) Not detected (NOT DETECT) 09/23/22 15:06 C. pneumoniae DNA (PCR) Not detected (NOT DETECT) 09/23/22 15:06 Coronavirus 229E (PCR) Not detected (NOT DETECT) 09/23/22 15:06 Human Metapneumovir PCR Not detected (NOT DETECT) 09/23/22 15:06 Influenza A (H1) PCR Not detected (NOT DETECT) 09/23/22 15:06 Influenza A (H3) PCR Not detected (NOT DETECT) 09/23/22 15:06 Influenza Type A (PCR) Not detected (NOT DETECT) 09/23/22 15:06 Influenza Type B (PCR) Not detected (NOT DETECT) 09/23/22 15:06 M. pneumoniae (PCR) Not detected (NOT DETECT) 09/23/22 15:06 Parainfluenza 1 (PCR) Not detected (NOT DETECT) 09/23/22 15:06 Parainfluenza 2 (PCR) Not detected (NOT DETECT) 09/23/22 15:06 Parainfluenza 3 (PCR) Not detected (NOT DETECT) 09/23/22 15:06 Parainfluenza 4 (PCR) Not detected (NOT DETECT) 09/23/22 15:06 RSV Type A (PCR) Not detected (NOT DETECT) 09/23/22 15:06 RSV Type B (PCR) Not detected (NOT DETECT) 09/23/22 15:06 Entero/Rhino (PCR) Detected (NOT DETECT) A 09/23/22 15:06 SARS-CoV-2 (PCR) Not detected (NOT DETECT) 09/23/22 15:06 Discharge Plan Discharge Patient Disposition: Home Clinical Impression: Viral pneumonia, Acute UTI Condition: Stable Prescriptions: No Action metoprolol tartrate 25 mg tablet 12.5 mg PO BID Qty: 180 1RF sacubitril-valsartan 97-103 mg tablet 1 tab PO BID Qty: 180 2RF nitroglycerin [Nitrostat] 0.4 mg tablet, sublingual 0.4 mg SUBLINGUAL Q5M PRN (Reason: chest pain) Qty: 30 2RF amoxicillin-pot clavulanate 875-125 mg tablet 1 tab PO BID 10 Days Qty: 20 0RF (DME) mdINR See Rx Instructions .Route .MEDSUPPLY Qty: 1 0RF Rx Instructions: As directed warfarin 2 mg tablet See Rx Instructions .ROUTE .COMPLEX Qty: 120 1RF Dose Instruction: TAKE THREE TABLETS BY MOUTH ON SATURDAY, SATURDAY AND SATURDAY AND TAKE 3 AND 1/2 TABLETS ON ALL OTHER DAYS Rx Instructions: TAKE 3 AND 1/2 TABLETS EVERYDAY atorvastatin 40 mg tablet 40 mg PO QPM clopidogrel 75 mg tablet 75 mg PO DAILY isosorbide mononitrate 60 mg tablet extended release 24 hr 60 mg PO DAILY furosemide 20 mg tablet 20 mg PO DAILY Discharge Orders: Discharge ED (Routine); Ordered 09/23/22 Ordered By: Carlos Hogue Referrals: Justyna Alvarado FNP [Primary Care Provider] - Discharge Diet: Usual diet Discharge Activity: Resume usual activity Patient Instructions: Viral Pneumonia (ED), Urinary Tract Infection in Men (ED), Altered Mental Status (ED) Activity Restrictions/Additional Instructions: Thank you for visiting the emergency department. You were seen and evaluated for confusion. The exact cause of your symptoms is unclear though likely related to viral pneumonia and urinary tract infection. I will prescribe antibiotics. Please ensure that you are staying hydrated. Please continue your other medications. Follow-up with a primary care provider within the next 3 days. Return for worsening symptoms or anything else that you are concerned about and feel needs emergency department evaluation. Coding Level of Care Code ED Locker Room Attendant for Milana Cárdenas
[2022-09-23 13:55] VITALS: BP 135/74; PULSE 91; RESP 20; TEMP 36.4; O2SAT 90
--- NOTE | 2022-09-23 14:09 | CTR_ITS ---
PROCEDURE INFORMATION: Exam: CT Cervical Spine Without Contrast Exam date and time: 09/23/2022 2:35 PM Age: 72 years old Clinical indication: Injury or trauma; Fall; Blunt trauma; Additional info: AMS, falls TECHNIQUE: Imaging protocol: Computed tomography of the cervical spine without contrast. Axial, coronal and sagittal reformatted images were created and reviewed. Radiation optimization: All CT scans at this facility use at least one of these dose optimization techniques: automated exposure control; mA and/or kV adjustment per patient size (includes targeted exams where dose is matched to clinical indication); or iterative reconstruction. REPORTING DATA: Count of CT and Cardiac NM exams in prior 12 months: This patient has received 0 known CTs and 0 known cardiac nuclear medicine studies in the 12 months prior to the current study. COMPARISON: CR (CHEST, ) 09/23/2022 2:29 PM RADIATION DOSE METRICS: Total DLP (mGy-cm): 1243.1 FINDINGS: Bones/joints: Osteopenia. Straightening of the normal cervical lordosis. No CT evidence of acute fracture, dislocation or subluxation. Alignment anatomic. Mild dextroscoliosis. Vertebral body heights maintained. Mild multilevel degenerative changes, characterized by disc space narrowing, osteophytosis and uncovertebral and facet joint hypertrophy. Mild multilevel spinal canal and neural foraminal narrowing. Lungs: Grossly unremarkable. Soft tissues: Grossly unremarkable. CT/CT cervical spin wo con* [id number]: 1[address] No CT evidence of acute cervical spine traumatic injury. 2. Additional findings, as above.
--- NOTE | 2022-09-23 14:09 | XRR_ITS ---
PROCEDURE INFORMATION: Exam: XR Chest Exam date and time: 09/23/2022 2:29 PM Age: 72 years old Clinical indication: Shortness of breath; Additional info: SOB, AMS TECHNIQUE: Imaging protocol: Radiologic exam of the chest. Views: 1 view. COMPARISON: CR XR chest 2V* [id number] 02/22/2021 2:20 PM FINDINGS: Lungs: Unremarkable. No consolidation. Pleural spaces: Unremarkable. No pleural effusion. No pneumothorax. Heart/Mediastinum: Unremarkable. No cardiomegaly. Bones/joints: Unremarkable. XR/XR chest 1V portable [id number] IMPRESSION: No acute findings.
--- NOTE | 2022-09-23 14:09 | CTR_ITS ---
PROCEDURE INFORMATION: Exam: CT Head Without Contrast Exam date and time: 09/23/2022 2:35 PM Age: 72 years old Clinical indication: Altered mental status/memory loss; Additional info: AMS TECHNIQUE: Imaging protocol: Computed tomography of the head without contrast. Axial, coronal and sagittal reformatted images were created and reviewed. Radiation optimization: All CT scans at this facility use at least one of these dose optimization techniques: automated exposure control; mA and/or kV adjustment per patient size (includes targeted exams where dose is matched to clinical indication); or iterative reconstruction. REPORTING DATA: Count of CT and Cardiac NM exams in prior 12 months: This patient has received 0 known CTs and 0 known cardiac nuclear medicine studies in the 12 months prior to the current study. COMPARISON: CT head wo con* [id number] 08/04/2017 6:43 PM RADIATION DOSE METRICS: Total DLP (mGy-cm): 342 FINDINGS: Brain: Patchy areas of hypoattenuation in the periventricular and subcortical white matter, consistent with chronic small vessel ischemic disease. Left greater than right posterior encephalomalacia, similar to prior. Focal, well-circumscribed hypodensities in the basal ganglia, zuñiga radiata and centrum semiovale, consistent with chronic lacunar infarcts. No CT evidence of acute intracranial hemorrhage or acute territorial infarction. No significant mass effect or midline shift. Basal cisterns patent. Cerebral ventricles: Prominence of the cortical sulci, cisterns and ventricular system, consistent with cerebral and cerebellar volume loss. Paranasal sinuses: Extensive opacification of the ethmoid air cells and paranasal sinuses. Mastoid air cells: Right-sided otomastoiditis. Bones/joints: No acute osseous abnormality. Soft tissues: Grossly unremarkable. Vasculature: Calcific atherosclerotic disease in the cavernous internal carotid arteries, as well as the vertebro-basilar system. CT/CT head wo con* [id number] IMPRESSION: 1. No CT evidence of acute intracranial pathology. 2. Additional findings, as above.
--- NOTE | 2022-09-23 14:10 | ECG_ITS ---
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 Measurements Intervals [place] Rate: 96 P: 52 IN: 158 QRS: -48 QRSD: 116 T: 94 QT: 376 QTc: 477 Interpretive Statements SINUS RHYTHM LEFT ANTERIOR FASCICULAR BLOCK [QRS AXIS <= -45, QR IN I, RS IN II] INFERIOR MYOCARDIAL INFARCTION , OF INDETERMINATE AGE ANTEROLATERAL MYOCARDIAL INFARCTION , PROBABLY RECENT Compared to ECG 08/04/2017 18:14:02 Left anterior fascicular block now present Short IN interval no longer present Myocardial infarct finding still present Electronically Signed On 09-24-2022 21:20:12 CDT by Ellen Gutierrez M.D. [id number]
[2022-09-23 14:39] LABS: Basophils # 0.1 10^3/uL (0.0-0.1); Basophils % 0.4 %; Eosinophils % 0.1 %; Hematocrit 41.9 % (42.0-52.0); Lymphocytes # 2.1 10^3/uL (0.8-4.8); Lymphocytes % 12.8 %; Mean Corpuscular HGB Conc 33.4 g/dL (30.0-36.0); Mean Corpuscular Hemoglobin 32.3 pg (28.0-34.0); Mean Corpuscular Volume 96.5 fl (80-94); Mean Platelet Volume 9.7 fL (7.4-10.4); Monocytes # 1.4 10^3/uL (0.2-0.9); Monocytes % 8.5 %; Neutrophils # 12.47 10^3/uL (1.8-7.7); Neutrophils % 77.9 %; Nucleated Red Blood Cells % 0 %; Platelet Count 309 10^3/cmm (130-400); Red Blood Count 4.34 10^6/uL (4.1-5.3); Red Cell Distribution Width 12.4 % (12.1-15.1)
[2022-09-23 14:56] LABS: INR 1.66 (0.8-1.2)
[2022-09-23 14:57] LABS: Partial Thromboplastin Time 34.2 SECONDS (23.9-36.7)
[2022-09-23 15:02] LABS: Troponin(5th) Baseline 29 ng/L (0-15)
[2022-09-23 15:03] LABS: Lactic Sepsis W/Reflex 1.8 mmol/L (0.5-2.2)
[2022-09-23 15:10] LABS: NT Pro B Type Natriuretic Pept 2566 pg/mL (0-125); Procalcitonin 0.04 ng/mL (0-0.5)
[2022-09-23 15:21] LABS: Alanine Aminotransferase 19 U/L (0-41); Albumin Level 3.7 g/dL (3.5-5.2); Alkaline Phosphatase 67 U/L (40-130); Anion Gap 19.9 (5-19); Aspartate Amino Transferase 31 U/L (0-40); Blood Urea Nitrogen 9 mg/dL (8-23); C Reactive Protein 20.9 mg/L (0.0-4.9); Calcium 8.5 mg/dL (8.5-10.5); Carbon Dioxide 18 mmol/L (22-29); Chloride 103 mmol/L (98-107); Globulin 2.5 g/dL (1.3-4.6); Glucose 113 mg/dL (65-115); Osmolality Calculated 283 mOsm/kg (285-295); Potassium 3.9 mmol/L (3.5-5.1); Sodium 137 mmol/L (136-145); Total Bilirubin 0.7 mg/dL (0.15-1.2); Total Protein 6.2 g/dL (6.6-8.7)
--- NOTE | 2022-09-23 15:42 | XRR_ITS ---
PROCEDURE INFORMATION: Exam: XR Left Foot Exam date and time: 09/23/2022 3:59 PM Clinical indication: Pain; Foot; Bilateral; Additional info: Fall, pain TECHNIQUE: Imaging protocol: Radiologic exam of the left foot. Views: 3 or more views. COMPARISON: No relevant prior studies available. FINDINGS: Bones/joints: Osseous structures are intact. Negative for fracture. Soft tissues: Normal. XR/XR foot LT min 3V* [id number] IMPRESSION: No acute findings.
--- NOTE | 2022-09-23 15:42 | XRR_ITS ---
PROCEDURE INFORMATION: Exam: XR Right Foot Exam date and time: 09/23/2022 3:57 PM Age: 72 years old Clinical indication: Pain; Foot; Bilateral; Additional info: Fall, pain TECHNIQUE: Imaging protocol: Radiologic exam of the right foot. Views: 3 or more views. COMPARISON: No relevant prior studies available. FINDINGS: Bones/joints: Osseous structures are intact. Negative for fracture. Soft tissues: Normal. XR/XR foot RT min 3V* [id number] IMPRESSION: No acute findings.
[2022-09-23 16:00] VITALS: BP 138/85; RESP 18; O2SAT 92
[2022-09-23 16:16] LABS: Blood Urine 3+ (Negative); Glucose Urine UA Norm (Normal); Ketones Urine Negative (Negative); Nitrate Urine Positive (Negative); Protein Urine 1+ (Negative); Urine Appearance Hazy (CLEAR); Urine Color Dark Yellow (Yellow); pH Urine 5 (5-7)
[2022-09-23 16:17] LABS: Add Urine Culture? Yes; Add Urine Microscopic? YES; Bacteria Urine 3+ /hpf; Bilirubin Urine Neg (Negative); Leukocyte Esterase Urine 2+ (Negative); Urobilinogen Urine Norm (Negative); WBC Urine 40-55 /hpf (0-5)
--- NOTE | 2022-09-23 16:52 | ECG_ITS ---
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 Measurements Intervals [place] Rate: 88 P: 40 WA: 152 QRS: -50 QRSD: 125 T: 116 QT: 411 QTc: 499 Interpretive Statements SINUS RHYTHM WITH OCCASIONAL VENTRICULAR PREMATURE COMPLEXES WITH OCCASIONAL SUPRAVENTRICULAR PREMATURE COMPLEXES LEFT ANTERIOR FASCICULAR BLOCK [QRS AXIS <= -45, QR IN I, RS IN II] INFERIOR MYOCARDIAL INFARCTION , OF INDETERMINATE AGE [40+ ms Q WAVE AND/OR ST/T ABNORMALITY IN II/aVF] ANTEROLATERAL MYOCARDIAL INFARCTION , PROBABLY RECENT Compared to ECG 09/23/2022 14:17:35 Ventricular premature complex(es) now present Myocardial infarct finding still present Electronically Signed On 09-24-2022 21:36:52 CDT by Ellen Gutierrez M.D. [id number]
[2022-09-23 17:00] VITALS: O2SAT 96
[2022-09-23 17:03] LABS: Adenovirus Not Detected (NOT DETECT); Chlamydia Pneumoniae Not Detected (NOT DETECT); Coronavirus 229E,HKU1,NL63,OC4 Not Detected (NOT DETECT); Human Metapneumovirus Not Detected (NOT DETECT); Human Rhinovirus/Enterovirus Detected (NOT DETECT); Influenza A Not Detected (NOT DETECT); Influenza A H1 Not Detected (NOT DETECT); Influenza A H1-2009 Not Detected (NOT DETECT); Influenza A H3 Not Detected (NOT DETECT); Influenza B Not Detected (NOT DETECT); Mycoplasma Pneumoniae Not Detected (NOT DETECT); Parainfluenza Virus Type 1 Not Detected (NOT DETECT); Parainfluenza Virus Type 2 Not Detected (NOT DETECT); Parainfluenza Virus Type 3 Not Detected (NOT DETECT); Parainfluenza Virus Type 4 Not Detected (NOT DETECT); Respiratory Syncytial Virus A Not Detected (NOT DETECT); Respiratory Syncytial Virus B Not Detected (NOT DETECT); SARS-COV-2 Not Detected (NOT DETECT)
[2022-09-23] MEDS: cefTRIAXone 1,000 MG in sodium chloride 0.9% (plus) 50 ML 100 MG IV (17:35)
[2022-09-23 18:00] VITALS: PULSE 87; RESP 16; O2SAT 97
[2022-09-23 18:17] VITALS: BP 148/96; RESP 18
== END 2022-09-23 18:17 | disposition home or self-care (01) ==
PROVIDERS: Emergency Provider Emergency Medicine; PCP Nurse Practitioner Family
DX: R41.82 Altered mental status, unspecified (principal); J18.9 Pneumonia, unspecified organism; Z87.891 Personal history of nicotine dependence; N39.0 Urinary tract infection, site not specified; M79.672 Pain in left foot; M79.671 Pain in right foot; I45.89 Other specified conduction disorders; R94.31 Abnormal electrocardiogram [ECG] [EKG]; E86.0 Dehydration
CPT/HCPCS: 36415; 70450; 71045; 72125; 73630; 80053; 81001; 83605; 83880; 84145; 84484; 85025; 85610; 85730; 86140; 87040; 87077; 87086; 87186; 87486; 87581; 87633; 93005; 96374; 99285; J0696

== ENCOUNTER → 2022-09-28 10:48 | Outpatient (BNVA) | payer MEDICARE, SELFPAY | PROVIDERS: PCP Nurse Practitioner Family; Visit Provider Nurse Practitioner Family | DX: I48.11 Longstanding persistent atrial fibrillation (principal) | CPT/HCPCS: 85610 ==

== ENCOUNTER → 2022-11-08 12:28 | Outpatient (BNVA) | payer MEDICARE, SELFPAY | PROVIDERS: PCP Nurse Practitioner Family; Visit Provider Podiatrist Foot & Ankle Surgery | DX: E11.8 Type 2 diabetes mellitus with unspecified complications (principal); N18.2 Chronic kidney disease, stage 2 (mild); I73.9 Peripheral vascular disease, unspecified; L60.3 Nail dystrophy; E11.22 Type 2 diabetes mellitus with diabetic chronic kidney disease | CPT/HCPCS: 11721 ==

== ENCOUNTER → 2023-02-06 07:22 | Outpatient (BNVA) | payer MEDICARE, SELFPAY | PROVIDERS: PCP Nurse Practitioner Family; Visit Provider Podiatrist Foot & Ankle Surgery | DX: N18.9 Chronic kidney disease, unspecified; I73.9 Peripheral vascular disease, unspecified; L60.3 Nail dystrophy; L84 Corns and callosities | CPT/HCPCS: 11055; 11721 ==

== ENCOUNTER → 2023-03-06 08:11 | Outpatient (BNVA) | payer MEDICARE, SELFPAY | PROVIDERS: PCP Nurse Practitioner Family; Visit Provider Podiatrist Foot & Ankle Surgery | DX: N18.2 Chronic kidney disease, stage 2 (mild) (principal); I73.9 Peripheral vascular disease, unspecified; L97.522 Non-pressure chronic ulcer of other part of left foot with fat layer exposed | CPT/HCPCS: 99213 ==

== ENCOUNTER → 2023-03-28 13:50 | Outpatient (BNVA) | payer MEDICARE, SELFPAY | PROVIDERS: PCP Nurse Practitioner Family; Visit Provider Internal Medicine Cardiovascular Disease | DX: I48.11 Longstanding persistent atrial fibrillation (principal); Z79.01 Long term (current) use of anticoagulants; E78.49 Other hyperlipidemia; I13.0 Hypertensive heart and chronic kidney disease with heart failure and stage 1 through stage 4 chronic kidney disease, or unspecified chronic kidney disease; I50.9 Heart failure, unspecified; N18.2 Chronic kidney disease, stage 2 (mild); I25.10 Atherosclerotic heart disease of native coronary artery without angina pectoris; Z98.62 Peripheral vascular angioplasty status; I26.99 Other pulmonary embolism without acute cor pulmonale; J44.9 Chronic obstructive pulmonary disease, unspecified; Z87.891 Personal history of nicotine dependence | CPT/HCPCS: 99214 ==

== ENCOUNTER → 2023-04-03 08:56 | Outpatient (BNVA) | payer MEDICARE, SELFPAY | PROVIDERS: PCP Nurse Practitioner Family; Visit Provider Podiatrist Foot & Ankle Surgery | DX: N18.2 Chronic kidney disease, stage 2 (mild) (principal); I73.9 Peripheral vascular disease, unspecified; L97.522 Non-pressure chronic ulcer of other part of left foot with fat layer exposed | CPT/HCPCS: 99213 ==

== ENCOUNTER → 2023-04-16 15:09 | Outpatient (BNVA) | payer MEDICARE, SELFPAY | PROVIDERS: PCP Nurse Practitioner Family; Visit Provider Nurse Practitioner Family | DX: E78.49 Other hyperlipidemia (principal); I48.11 Longstanding persistent atrial fibrillation | CPT/HCPCS: 80053; 80061; 84443; 85025; 85610 ==

== ENCOUNTER → 2023-06-18 09:18 | Outpatient (BNVA) | payer MEDICARE, SELFPAY | PROVIDERS: PCP Nurse Practitioner Family; Visit Provider Nurse Practitioner Family | DX: N39.0 Urinary tract infection, site not specified (principal) | CPT/HCPCS: 81003; 87086 ==

== ENCOUNTER → 2023-06-26 13:07 | Outpatient (BNVA) | payer MEDICARE, SELFPAY | PROVIDERS: PCP Nurse Practitioner Family; Visit Provider Podiatrist Foot & Ankle Surgery | DX: N18.2 Chronic kidney disease, stage 2 (mild) (principal); I73.9 Peripheral vascular disease, unspecified; L97.522 Non-pressure chronic ulcer of other part of left foot with fat layer exposed; B35.1 Tinea unguium; L84 Corns and callosities | CPT/HCPCS: 11056; 11721 ==

== ENCOUNTER 2023-07-06 17:50 | Emergency (ER) | payer MEDICARE, SELFPAY ==
[2023-07-06 17:55] VITALS: BP 145/79; PULSE 80; RESP 17; TEMP 36.6; O2SAT 94; BMI 31.2
--- NOTE | 2023-07-06 18:06 | CTR_ITS ---
PROCEDURE INFORMATION: Exam: CT Head Without Contrast Exam date and time: 07/06/2023 6:29 PM Age: 73 years old Clinical indication: Injury or trauma; Fall; Blunt trauma (contusions or hematomas); Patient HX: Patient lost balance and fell backwards striking occiput against brick wall. Anticoagulated. ; Additional info: Head injury TECHNIQUE: Imaging protocol: Computed tomography of the head without contrast. Radiation optimization: All CT scans at this facility use at least one of these dose optimization techniques: automated exposure control; mA and/or kV adjustment per patient size (includes targeted exams where dose is matched to clinical indication); or iterative reconstruction. COMPARISON: CT head wo con* [id number] 09/23/2022 2:35 PM RADIATION DOSE METRICS: Total DLP (mGy-cm): 1374.42 FINDINGS: Brain: Bilateral parietal encephalomalacia. Bilateral periventricular white matter hypodensities consistent with chronic ischemic small vessel. No new infarct, intracranial bleed or mass effect. Cerebral ventricles: No ventriculomegaly. Pituitary gland and sella: Partially empty sella. Paranasal sinuses: There is mucosal bilateral ethmoid air cells. Mastoid air cells: Visualized mastoid air cells are well aerated. Bones: Unremarkable. No acute fracture. Soft tissues: Unremarkable. Vasculature: Vascular calcifications. CT/CT head wo con* [id number] IMPRESSION: No intracranial posttraumatic changes.
--- NOTE | 2023-07-06 18:39 | XRR_ITS ---
PROCEDURE INFORMATION: Exam: XR Left Elbow Exam date and time: 07/06/2023 6:51 PM Age: 73 years old Clinical indication: Injury or trauma; Fall; Blunt trauma (contusions or hematomas); Patient HX: Patient fell backwards against a brick wall and then onto the ground. C/O left elbow pain. ; Additional info: Fall elbow inj TECHNIQUE: Imaging protocol: Radiologic exam of the left elbow. Views: 3 or more views. COMPARISON: No relevant prior studies available. FINDINGS: Bones/joints: Question subtle nondisplaced fracture of the left radial head and neck. Soft tissues: Normal. XR/XR elbow LT min 3V* [id number] IMPRESSION: Question subtle nondisplaced fracture of the left radial head and neck.
--- NOTE | 2023-07-06 18:45 | ED_ITS ---
HPI - Extremity Problem General: Chief complaint: Extremity Injury, Upper Stated complaint: fall, elbow lac Time Seen by Provider: 07/06/23 18:25 History of Present Illness: 73-year-old male gentleman with a histor y of stroke on warfarin presents with a fall. He was at a local [employer] restaurant, missed a step, stumbled, and fell hitting his posterior head on a brick wall. He also struck his left upper extremity. He complains of left elbow and wrist pain as well as headache. He was not knocked unconscious. His states that he was confused to some degree in the beginning, but has since improved. Associated symptoms: Deny chest pain Review of Systems Card: Denies: chest pain Resp: Denies: dyspnea GI: Denies: vomiting Musc: Denies: neck pain Neuro: Reports: headache(s) PFS ED PFSH: Medical History Warfarin anticoagulation History of urinary retention CAD (coronary artery disease) COPD (chronic obstructive pulmonary disease) Erectile dysfunction Depression CHF (congestive heart failure) History of CVA (cerebrovascular accident) Hx pulmonary embolism Pulmonary embolism CKD (chronic kidney disease) Hyperlipidemia Surgical History Hx of hernia repair Hx of appendectomy Hx of angioplasty Hx of urethrotomy Family History Mother , IN HER 60'S of unknown cause Chronic kidney disease (CKD) Diabetes Father , IN HIS 70'S Cancer Brother CAD (coronary artery disease) Denies family history of Clotting disorder Dementia Suicide Anesthesia complication Bleeding disorder Lung disease Stroke Social History Smoking and tobacco/nicotine status: former use of tobacco/nicotine Second hand smoke exposure: No Alcohol intake: never Substance/Drug Use: never Adopted: No Caregiver/support person: No Lives independently: Yes Household members: none Marital status: Single Current occupational status: disabled Do you think of yourself as: Straight/Heterosexual Current gender identity: Male Special miroslava needs: No Agree to transfusion: Yes Physical Exam Const: COMMON NORMALS: no acute distress GENERAL APPEARANCE: cooperative and frail appearing HENMT: COMMON NORMALS: normocephalic and Normal external nose present HEAD & SCALP: normocephalic, contusion (Small left occipital) and scalp lesion (Small abrasion); no laceration FACE & SINUS: normal facial exam and face symmetric NOSE: Normal external nose present Eye: COMMON NORMALS: Equal, round and reactive pupils present and EOMs intact bilaterally PUPIL: Yes Equal, round and reactive pupils present Neck/C-Spine: GENERAL: Yes trachea midline CERVICAL SPINE: No pain with cervical ROM and No Cervical spine tenderness Chest: CHEST: Yes Symmetrical chest wall rise Resp: COMMON NORMALS: normal respiratory effort, No use of accessory muscles and clear to auscultation bilaterally AUSCULTATION: clear to auscultation bilaterally Cardio: COMMON NORMALS: regular rate and regular rhythm RATE: regular rate RHYTHM: regular rhythm Extremity: NARRATIVE EXTREMITY EXAM: Exam of the left upper extremity reveals tenderness over the left lateral elbow. There is no deformity. There is mild swelling. There is a small abrasion present. There is also some tenderness over the left wrist with no deformity. Neuro: MEHNAZ COMA SCALE: document GCS findings [place] coma scale eye opening: Spontaneous [place] coma scale verbal response: Orientated Mehnaz coma scale motor response: Obey commands Mehnaz coma scale total score: 15 Course Vital Signs: Vital signs: Vital Signs Temperature 97.8 F 07/06/23 17:55 Pulse Rate 80 07/06/23 18:49 Respiratory Rate 18 07/06/23 20:07 Blood Pressure 137/89 07/06/23 18:49 Pulse Oximetry 92 07/06/23 20:07 Oxygen Delivery Me thod Room Air 07/06/23 18:49 MDM - Extremity (Nontraumatic) Medical Decision Making X-ray showed nondisplaced radial head fracture. He will be placed in a sling. Treatment is usually early motion for these. Head CT is negative for bleeding or swelling. Patient will be discharged Lab Data Radiology Impressions Head CT 07/06/23 18:06 IMPRESSION: No intracranial posttraumatic changes. Elbow X-Ray 07/06/23 18:39 IMPRESSION: Question subtle nondisplaced fracture of the left radial head and neck. Wrist X-Ray 07/06/23 19:11 IMPRESSION: No acute fracture identified. All radiology interpretation(s) finalized by discharge Discharge Plan Discharge Patient Disposition: Home Clinical Impression: Contusion of scalp, Contusion of elbow, left, Fracture of head of left radius Condition: Stable Prescriptions: New hydrocodone-acetaminophen 5-325 mg tablet 1 tab PO Q8H PRN (Reason: pain) Qty: 7 0RF No Action nitroglycerin [Nitrostat] 0.4 mg tablet, sublingual 0.4 mg SUBLINGUAL Q5M PRN (Reason: chest pain) Qty: 30 2RF ciprofloxacin HCl 500 mg tablet 500 mg PO BID 10 Days Qty: 20 0RF (DME) mdINR See Rx Instructions .Route .MEDSUPPLY Qty: 1 0RF Rx Instructions: As directed metoprolol tartrate 25 mg tablet 12.5 mg PO BID Qty: 180 1RF furosemide 20 mg tablet 20 mg PO DAILY Qty: 90 3RF clopidogrel 75 mg tablet See Rx Instructions .ROUTE .COMPLEX Qty: 30 0RF Dose Instruction: TAKE ONE TABLET BY MOUTH DAILY Rx Instructions: TAKE ONE TABLET BY MOUTH DAILY warfarin 2 mg tablet See Rx Instructions .ROUTE .COMPLEX Qty: 120 1RF Dose Instruction: TAKE FOUR TABLETS BY MOUTH DAILY Rx Instructions: TAKE FOUR TABLETS BY MOUTH DAILY atorvastatin 40 mg tablet See Rx Instructions .ROUTE .COMPLEX Qty: 90 1RF Dose Instruction: TAKE ONE TABLET BY MOUTH DAILY Rx Instructions: TAKE ONE TABLET BY MOUTH DAILY isosorbide mononitrate 60 mg tablet extended release 24 hr See Rx Instructions .ROUTE .COMPLEX Qty: 90 0RF Dose Instruction: TAKE ONE TABLET BY MOUTH EVERY DAY Rx Instructions: TAKE ONE TABLET BY MOUTH EVERY DAY sacubitril-valsartan 97-103 mg tablet 1 tab PO BID Qty: 90 3RF Discharge Orders: Discharge ED (Routine); Ordered 07/06/23 Ordered By: Irving Oliva Referrals: Justyna Alvarado FNP [Primary Care Provider] - Benito Lovelace DO [Physician] - 4-7 days Patient Instructions: Elbow Fracture (ED), Scalp Contusion in Adults (ED), Opioid Safety, Pain Management Activity Restrictions/Additional Instructions: Stay in your splint until seen by orthopedics. Give them a call on Saturday for an appointment next week. Their number is listed above. Use ice for pain. Take pain medication sparingly. Coding Level of Care Code ED Medicine And Health Service Manager for Milana Cárdenas
[2023-07-06 18:49] VITALS: BP 137/89; PULSE 80; O2SAT 91
[2023-07-06 18:54] VITALS: RESP 16
[2023-07-06] MEDS: oxyCODONE-APAP 5-325 mg Tablet 1 TAB PO (18:54)
--- NOTE | 2023-07-06 19:11 | XRR_ITS ---
PROCEDURE INFORMATION: Exam: XR Left Wrist Exam date and time: 07/06/2023 7:15 PM Age: 73 years old Clinical indication: Injury or trauma; Fall; Blunt trauma (contusions or hematomas); Prior surgery; Surgery date: 6+ months; Surgery type: Fixation; Patient HX: Patient fell backwards against a brick wall and then onto the ground. C/O left wrist pain. ; Additional info: Fall wrist inj TECHNIQUE: Imaging protocol: Radiologic exam of the left wrist. Views: 3 or more views. COMPARISON: CR (UP EX, ) 07/06/2023 6:51 PM FINDINGS: Bones/joints: Fixation hardware along the distal aspect of the left radius without evidence of hardware failure or loosening. No acute fracture identified. Soft tissues: Normal. Vasculature: Atherosclerotic disease. XR/XR wrist LT min 3V* [id number] IMPRESSION: No acute fracture identified.
[2023-07-06 20:07] VITALS: RESP 18; O2SAT 92
== END 2023-07-06 20:11 | disposition home or self-care (01) ==
PROVIDERS: Emergency Provider Emergency Medicine; PCP Nurse Practitioner Family
DX: S50.02XA Contusion of left elbow, initial encounter (principal); S00.03XA Contusion of scalp, initial encounter; Z79.01 Long term (current) use of anticoagulants; Z79.02 Long term (current) use of antithrombotics/antiplatelets; S52.125A Nondisplaced fracture of head of left radius, initial encounter for closed fracture; Z87.891 Personal history of nicotine dependence; I25.10 Atherosclerotic heart disease of native coronary artery without angina pectoris; J44.9 Chronic obstructive pulmonary disease, unspecified; I50.9 Heart failure, unspecified; Z86.73 Personal history of transient ischemic attack (TIA), and cerebral infarction without residual deficits; E78.5 Hyperlipidemia, unspecified; N18.9 Chronic kidney disease, unspecified; W01.198A Fall on same level from slipping, tripping and stumbling with subsequent striking against other object, initial encounter; Y92.511 Restaurant or cafe as the place of occurrence of the external cause
CPT/HCPCS: 70450; 73080; 73110; 99284

== ENCOUNTER → 2023-08-06 11:09 | Outpatient (BNVA) | payer MEDICARE, SELFPAY | PROVIDERS: PCP Nurse Practitioner Family; Visit Provider Student in an Organized Health Care Education/Training Program | DX: S69.92XA Unspecified injury of left wrist, hand and finger(s), initial encounter; W18.30XA Fall on same level, unspecified, initial encounter; Y92.481 Parking lot as the place of occurrence of the external cause | CPT/HCPCS: 73110 ==

== ENCOUNTER 2023-08-06 14:07 | Outpatient (CLI) | payer MEDICARE, SELFPAY | END 2023-08-06 14:08 | disposition home or self-care (01) | LOC: SPT 14:08 | PROVIDERS: PCP Nurse Practitioner Family; Visit Provider Student in an Organized Health Care Education/Training Program | DX: Z46.89 Encounter for fitting and adjustment of other specified devices (principal); S52.592D Other fractures of lower end of left radius, subsequent encounter for closed fracture with routine healing; S69.92XD Unspecified injury of left wrist, hand and finger(s), subsequent encounter; X58.XXXD Exposure to other specified factors, subsequent encounter | CPT/HCPCS: 97760; L3982 ==

== ENCOUNTER 2023-09-04 15:35 | Outpatient (CLI) | payer MEDICARE, SELFPAY ==
--- NOTE | 2023-09-04 16:00 | CTR_ITS ---
PROCEDURE INFORMATION: Exam: CT Left Upper Extremity Without Contrast, Wrist Exam date and time: 09/04/2023 3:51 PM Age: 73 years old Clinical indication: Prior surgery; Surgery date: 1-6 months; Surgery type: Left wrist; Patient HX: Continued pain TECHNIQUE: Imaging protocol: Computed tomography of the left upper extremity without contrast. Exam focused on the wrist. Radiation optimization: All CT scans at this facility use at least one of these dose optimization techniques: automated exposure control; mA and/or kV adjustment per patient size (includes targeted exams where dose is matched to clinical indication); or iterative reconstruction. COMPARISON: CR XR wrist LT min 3V* [id number] 08/06/2023 11:30 AM RADIATION DOSE METRICS: Total DLP (mGy-cm): 213.64 FINDINGS: Bones/joints: Internal fixation plate along the volar aspect of the distal radius with interlocking screws intact without hardware failure or loosening. Residual mild deformity of the site of the healed distal radial fracture. The tip of the radial screws abut the distal radial articular surface , with probable intra-articular extension of the tip of the 2nd lateral most screw. 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 Moderate cystic change of the distal aspect of the hamate. No carpal arch widening or disruption. Moderate motion degradation limits evaluation for subtle fractures and other osseous abnormalities. No fluid collection or other focal soft tissue masses evident around the wrist no obvious joint effusion. Soft tissues: Normal. Vasculature: Moderately extensive atherosclerotic calcification of the radial artery. CT/CT wrist LT wo con* [id number] IMPRESSION: 1. Motion degradation may limit assessment for subtle osseous abnormalities. 2. Healed fracture deformity of the distal radius. The tip of the 2nd lateral-most screw may have slightly extruded into the articular surface of the distal radius. 3. 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 Moderate degenerative cystic change of the hamate.
== END 2023-09-04 15:36 | disposition home or self-care (01) ==
PROVIDERS: PCP Nurse Practitioner Family; Visit Provider Student in an Organized Health Care Education/Training Program
DX: S69.92XA Unspecified injury of left wrist, hand and finger(s), initial encounter (principal); Z96.632 Presence of left artificial wrist joint; M71.332 Other bursal cyst, left wrist; M19.032 Primary osteoarthritis, left wrist
CPT/HCPCS: 73200

== ENCOUNTER → 2023-09-25 14:57 | Outpatient (BNVA) | payer MEDICARE, SELFPAY | PROVIDERS: PCP Nurse Practitioner Family; Visit Provider Podiatrist Foot & Ankle Surgery | DX: N18.2 Chronic kidney disease, stage 2 (mild) (principal); B35.1 Tinea unguium; L84 Corns and callosities; I73.9 Peripheral vascular disease, unspecified | CPT/HCPCS: 11056; 11721 ==

== ENCOUNTER → 2023-09-26 15:34 | Outpatient (BNVA) | payer MEDICARE, SELFPAY | PROVIDERS: PCP Nurse Practitioner Family; Visit Provider Internal Medicine Cardiovascular Disease | DX: I48.11 Longstanding persistent atrial fibrillation (principal); E78.49 Other hyperlipidemia; I26.99 Other pulmonary embolism without acute cor pulmonale; Z79.01 Long term (current) use of anticoagulants; I25.10 Atherosclerotic heart disease of native coronary artery without angina pectoris; I50.9 Heart failure, unspecified; Z87.891 Personal history of nicotine dependence | CPT/HCPCS: 99214 ==

== ENCOUNTER 2023-10-12 21:53 | Emergency (ER) | payer MEDICARE, SELFPAY ==
[2023-10-12 21:57] VITALS: BP 117/67; PULSE 80; RESP 17; TEMP 36.7; O2SAT 95; BMI 31.2
--- NOTE | 2023-10-12 22:26 | CTR_ITS ---
PROCEDURE INFORMATION: Exam: CT Abdomen And Pelvis Without Contrast Exam date and time: 10/12/2023 10:42 PM Age: 73 years old Clinical indication: Vomiting and other: Hematuria; Abdominal pain; Prior surgery; Surgery date: 6+ months; Surgery type: Hernia repair. Appy. Urethrotomy. Patient HX: Left flank pain with hematuria; Additional info: Hematuria, left flank bruising TECHNIQUE: Imaging protocol: Computed tomography of the abdomen and pelvis without contrast. Radiation optimization: All CT scans at this facility use at least one of these dose optimization techniques: automated exposure control; mA and/or kV adjustment per patient size (includes targeted exams where dose is matched to clinical indication); or iterative reconstruction. COMPARISON: CT chest w con* [id number] 02/28/2017 2:08 PM RADIATION DOSE METRICS: Total DLP (mGy-cm): 995.03 FINDINGS: Lungs: Mild atelectasis in the lung bases. Heart: Cardiomegaly. Coronary arteries: Coronary artery calcifications. Liver: Normal. No mass. Gallbladder and biliary ducts: Normal. No calcified stones. No ductal dilation. Pancreas: Fatty atrophy of the pancreas. Spleen: Calcified granuloma within the spleen. Adrenal glands: Normal. No mass. Kidneys and ureters: Right parapelvic cyst versus pelviectasis. Simple cysts within the bilateral kidneys, no follow-up needed. No hydronephrosis. Stomach and bowel: Unremarkable. No obstruction. No mucosal thickening. Appendix: Status post appendectomy. Intraperitoneal space: No free air. No significant fluid collection. Vasculature: Severe diffuse atherosclerotic calcifications. Lymph nodes: No enlarged lymph nodes. Urinary bladder: Small posterior bladder diverticulum. The bladder is distended measuring up to 19 cm in long axis. Mild surrounding fat stranding. Reproductive: Prostate measures proximally 5 cm with associated calcifications. Lobular appearance of the seminal vesicles. Bones/joints: Severe multilevel spondylosis. Chronic appearing compression deformity of the superior endplate of L5. Soft tissues: Small fat containing left inguinal hernia. CT/CT kidney stone [id number] IMPRESSION: 1. Prominent distension of the urinary bladder with mild surrounding fat stranding which may represent cystitis in the appropriate clinical setting. No hydronephrosis bilaterally. 2. Mild prostatomegaly with associated calcifications. Lobulated appearance of the seminal vesicles. 3. Severe diffuse atherosclerotic calcifications including coronary artery calcifications. COMMENTS: Consistent with the [place] [employer]'s Incidental Findings Committee white paper (J Am Steve Radiol 2018): Any incidental renal lesion less than 1 cm or classified as too small to characterize, or any incidental cystic renal lesion characterized as simple-appearing, is likely benign. No follow-up imaging is recommended for these lesions per consensus recommendations based on imaging criteria.
--- NOTE | 2023-10-12 22:30 | W.ED.MALEGU ---
Documented by User: MACIEJ Donaldson 10/12/23 23:54 HPI - Male Genitourinary General: Chief complaint: Urogenital-Male Stated complaint: fell bruise on back blood in stool Time Seen by Provider: 10/12/23 22:25 History of Present Illness: 73-year-old male patient was brought in for concerns of blood in his urine. Patient had tripped and fell probably 3 days ago and since then the spouse noticed some bruising to the left flank and bruising to the right elbow with abrasions. Patient denies any complaints of pain or discomfort. Patient's medical history includes warfarin anticoagulation, History of urinary retention, CAD (coronary artery disease), COPD (chronic obstructive pulmonary disease), Erectile dysfunction, Depression, CHF (congestive heart failure), History of CVA (cerebrovascular accident), Hx pulmonary embolism, CKD (chronic kidney disease), Hyperlipidemia. Surgical History: Hx of hernia repair, Hx of appendectomy, Hx of angioplasty, Hx of urethrotomy. Patient appears chronically ill. Patient appears nontoxic. Patient appears in no pain at rest. Patient is hard of hearing. Patient lets his answer questions for him. Related Data Previous Rx's Medication Instructions Recorded nitroglycerin 0.4 mg sublingual 0.4 mg sublingual Q5M PRN chest 05/01/22 tablet (Nitrostat) pain #30 tabs mdINR #1 ea 07/13/22 furosemide 20 mg tablet 20 mg PO DAILY #90 tabs 02/14/23 metoprolol tartrate 25 mg tablet 12.5 mg (1/2 x 25 mg) PO BID #180 02/14/23 tabs atorvastatin 40 mg tablet See Rx Instructions .Route 06/07/23 .COMPLEX #90 tabs isosorbide mononitrate 60 mg See Rx Instructions .Route 06/11/23 tablet,extended release 24 hr .COMPLEX #90 tabs sacubitril 97 mg-valsartan 103 mg 1 tab PO BID #90 tabs 06/18/23 tablet hydrocodone 5 mg-acetaminophen 325 1 tab PO Q8H PRN pain #7 tabs 07/06/23 mg tablet fast form, left wrist #1 ea 08/06/23 clopidogrel 75 mg tablet See Rx Instructions .Route 09/20/23 .COMPLEX #30 tabs warfarin 2 mg tablet See Rx Instructions .Route 10/10/23 .COMPLEX #120 tabs cephalexin 250 mg capsule 250 mg PO BID 7 days #14 caps 10/12/23 Allergies Allergy/AdvReac Type Severity Reaction Status Date / Time No Known Allergies Allergy Verified 10/12/23 22:01 Review of Systems General: Reports: 10 or more systems reviewed and unremarkable except in HPI and below PFSH ED PFSH: Medical History Warfarin anticoagulation History of urinary retention CAD (coronary artery disease) COPD (chronic obstructive pulmonary disease) Erectile dysfunction Depression CHF (congestive heart failure) History of CVA (cerebrovascular accident) Hx pulmonary embolism Pulmonary embolism CKD (chronic kidney disease) Hyperlipidemia Surgical History Hx of hernia repair Hx of appendectomy Hx of angioplasty Hx of urethrotomy Family History Mother , IN HER 60'S of unknown cause Chronic kidney disease (CKD) Diabetes Father , IN HIS 70'S Cancer Brother CAD (coronary artery disease) Denies family history of Clotting disorder Dementia Suicide Anesthesia complication Bleeding disorder Lung disease Stroke Social History Smoking and tobacco/nicotine status: former use of tobacco/nicotine Second hand smoke exposure: No Alcohol intake: never Substance/Drug Use: never Adopted: No Caregiver/support person: No Lives independently: Yes Household members: none Marital status: Single Current occupational status: disabled Do you think of yourself as: Straight/Heterosexual Current gender identity: Male Special miroslava needs: No Agree to transfusion: Yes Physical Exam Const: COMMON NORMALS: alert HENMT: COMMON NORMALS: normocephalic and atraumatic HEAD & SCALP: normocephalic and atraumatic Neck/C-Spine: COMMON NORMALS: full ROM Chest: COMMONS NORMALS: normal inspection of the chest Resp: COMMON NORMALS: normal respiratory effort and clear to auscultation bilaterally AUSCULTATION: clear to auscultation bilaterally Cardio: COMMON NORMALS: regular rate and regular rhythm RATE: regular rate RHYTHM: regular rhythm GI: COMMON NORMALS: Soft to palpation and non-tender PALPATION: Yes Soft to palpation Back/Pelvis: GENERAL BACK: Yes other (Bruising noted to the left flank) LUMBAR SPINE/LOWER BACK: Yes lumbar spinal tenderness Lumbar spinal tenderness location: L2 Extremity: RIGHT UPPER EXTREMITY: Yes elbow joint (Bruising and abrasions noted) Neuro: SENSORIUM/ORIENTATION: Yes alert Skin: COMMON NORMALS: turgor normal GENERAL SKIN EXAM: turgor normal Course Vital Signs: Vital signs: Vital Signs Temperature 98.1 F 10/12/23 21:57 Pulse Rate 82 10/12/23 23:56 Respiratory Rate 18 10/12/23 23:56 Blood Pressure 125/74 10/12/23 23:56 Pulse Oximetry 94 10/12/23 23:56 Oxygen Delivery Me thod Room Air 10/12/23 21:57 MDM - Male Medical Decision Making 73-year-old male patient comes in today status post fall x 3 days. Spouse was concerned due to noticing some blood in patient's urine today. Patient appears chronically ill. Patient appears in no pain. Patient on exam notes bruising and abrasions noted to the right elbow, and flank bruising to the left flank area. Respirations are even lungs are clear to auscultation. Vital signs are normal. Patient does take antiplatelet clopidogrel and anticoagulated with warfarin. Differential diagnosis includes not limited to renal contusion, urinary tract infection, renal calculi, vertebral fracture, excessive anticoagulation. CBC noted some mild leukocytosis with 16.5. White blood cell count. CMP was unremarkable. INR was 2.7. PTT was slightly elevated at 48.9. CT of the abdomen and pelvis noted distended bladder with a bladder scan showing greater than 1000 mL. Patient had a urinary catheter placed with drainage of the bladder. Patient was given 2 g of Rocephin and will continue on cephalexin 250 twice a day for 7 days. Recommend follow-up in 1 week with primary care to have catheter removed. Patient and family both reported understanding agreed to plan. Lab Data 10/12/23 22:39 10/12/23 22:39 Radiology Impressions Abdomen/Pelvis CT 10/12/23 22:26 IMPRESSION: 1. Prominent distension of the urinary bladder with mild surrounding fat stranding which may represent cystitis in the appropriate clinical setting. No hydronephrosis bilaterally. 2. Mild prostatomegaly with associated calcifications. Lobulated appearance of the seminal vesicles. 3. Severe diffuse atherosclerotic calcifications including coronary artery calcifications. COMMENTS: Consistent with the [employer]'s Incidental Findings Committee white paper (J Am Steve Radiol 2018): Any incidental renal lesion less than 1 cm or classified as too small to characterize, or any incidental cystic renal lesion characterized as simple-appearing, is likely benign. No follow-up imaging is recommended for these lesions per consensus recommendations based on imaging criteria. Laboratory Results WBC 16.55 10^3/uL (3.29-11.43) H 10/12/23 22:39 RBC 4.16 10^6/uL (3.85-5.65) 10/12/23 22:39 Hgb 13.50 g/dL (11.27-16.99) 10/12/23 22:39 Hct 40.1 % (37-53) 10/12/23 22:39 MCV 96.4 fl (82-101) 10/12/23 22:39 MCH 32.5 pg (27-33) 10/12/23 22:39 MCHC 33.7 g/dL (30-55) 10/12/23 22:39 RDW 14.3 % (12.1-15.1) 10/12/23 22:39 Plt Count 400 10^3/cmm (157-399) H 10/12/23 22:39 MPV 9.1 fL (7.4-10.4) 10/12/23 22:39 Neut % (Auto) 71.5 % 10/12/23 22:39 Lymph % (Auto) 17.0 % 10/12/23 22:39 [place] % (Auto) 9.0 % 10/12/23 22:39 Eos % (Auto) 1.4 % 10/12/23 22:39 Baso % (Auto) 0.7 % 10/12/23 22:39 Neut # (Auto) 11.85 10^3/uL (1.8-7.7) H 10/12/23 22:39 Lymph # (Auto) 2.8 10^3/uL (0.8-4.8) 10/12/23 22:39 [place] # (Auto) 1.5 10^3/uL (0.2-0.9) H 10/12/23 22:39 Eos # (Auto) 0.2 10^3/uL (0.0-0.8) 10/12/23 22:39 Baso # (Auto) 0.1 10^3/uL (0.0-0.1) 10/12/23 22:39 Nucleated RBC % (auto) 0 % 10/12/23 22:39 Nucleated RBCs # 0.0 /100WBC 10/12/23 22:39 PT 30.00 SECONDS (12.1-14.9) H 10/12/23 22:39 INR 2.73 (0.8-1.2) H 10/12/23 22:39 APTT 48.9 SECONDS (23.9-36.7) H 10/12/23 22:39 Sodium 137 mmol/L (136-145) 10/12/23 22:39 Potassium 3.8 mmol/L (3.5-5.1) 10/12/23 22:39 Chloride 100 mmol/L (98-107) 10/12/23 22:39 Carbon Dioxide 24 mmol/L (22-29) 10/12/23 22:39 Anion Gap 16.8 (5-19) 10/12/23 22:39 BUN 10 mg/dL (8-23) 10/12/23 22:39 Creatinine 1.1 mg/dL (0.7-1.2) 10/12/23 22:39 GFR Calculation Not Reportable 10/12/23 22:39 Glucose 121 mg/dL (65-115) H 10/12/23 22:39 Calculated Osmolality 284 mOsm/kg (285-295) L 10/12/23 22:39 Calcium 8.9 mg/dL (8.5-10.5) 10/12/23 22:39 Total Bilirubin 1.1 mg/dL (0.15-1.2) 10/12/23 22:39 AST 27 U/L (0-40) 10/12/23 22:39 ALT 16 U/L (0-41) 10/12/23 22:39 Alkaline Phosphatase 128 U/L (40-130) 10/12/23 22:39 Total Protein 7.2 g/dL (6.6-8.7) 10/12/23 22:39 Albumin 3.6 g/dL (3.5-5.2) 10/12/23 22:39 Globulin 3.6 g/dL (1.3-4.6) 10/12/23 22:39 Urine Color Other (Yellow) A 10/12/23 23:13 Urine Appearance Cloudy (CLEAR) A 10/12/23 23:13 Urine pH 5.5 (5-7) 10/12/23 23:13 Ur Specific [place] 1.014 (1.005-1.030) 10/12/23 23:13 Urine Protein 3+ (Negative) A 10/12/23 23:13 Urine Glucose (UA) Negative (Normal) 10/12/23 23:13 Urine Ketones Negative (Negative) 10/12/23 23:13 Urine Blood 3+ (Negative) A 10/12/23 23:13 Urine Nitrate Negative (Negative) 10/12/23 23:13 Urine Bilirubin Negative (Negative) 10/12/23 23:13 Urine Urobilinogen 1.0 mg/dL (Negative) 10/12/23 23:13 Ur Leukocyte Esterase 2+ (Negative) A 10/12/23 23:13 Urine RBC >100 /hpf (0-2) H 10/12/23 23:13 Urine WBC >100 /hpf (0-5) H 10/12/23 23:13 Ur Squamous Epith Cells 0-5 /hpf (0-5) 10/12/23 23:13 Amorphous Sediment 1+ /hpf 10/12/23 23:13 Urine Bacteria 2+ /hpf (NONE) H 10/12/23 23:13 Hyaline Casts 0.81 /lpf 10/12/23 23:13 No radiology studies performed this visit Discharge Plan Discharge Patient Disposition: Home Clinical Impression: Acute cystitis with hematuria, Benign prostatic hyperplasia with urinary retention Condition: Stable Prescriptions: New cephalexin 250 mg capsule 250 mg PO BID 7 Days Qty: 14 0RF No Action nitroglycerin [Nitrostat] 0.4 mg tablet, sublingual 0.4 mg SUBLINGUAL Q5M PRN (Reason: chest pain) Qty: 30 2RF (DME) fast form, left wrist See Rx Instructions .Route .MEDSUPPLY Qty: 1 0RF Rx Instructions: As directed (DME) mdINR See Rx Instructions .Route .MEDSUPPLY Qty: 1 0RF Rx Instructions: As directed metoprolol tartrate 25 mg tablet 12.5 mg PO BID Qty: 180 1RF furosemide 20 mg tablet 20 mg PO DAILY Qty: 90 3RF atorvastatin 40 mg tablet See Rx Instructions .ROUTE .COMPLEX Qty: 90 1RF Dose Instruction: TAKE ONE TABLET BY MOUTH DAILY Rx Instructions: TAKE ONE TABLET BY MOUTH DAILY isosorbide mononitrate 60 mg tablet extended release 24 hr See Rx Instructions .ROUTE .COMPLEX Qty: 90 0RF Dose Instruction: TAKE ONE TABLET BY MOUTH EVERY DAY Rx Instructions: TAKE ONE TABLET BY MOUTH EVERY DAY sacubitril-valsartan 97-103 mg tablet 1 tab PO BID Qty: 90 3RF clopidogrel 75 mg tablet See Rx Instructions .ROUTE .COMPLEX Qty: 30 0RF Dose Instruction: TAKE ONE TABLET BY MOUTH DAILY Rx Instructions: TAKE ONE TABLET BY MOUTH DAILY warfarin 2 mg tablet See Rx Instructions .ROUTE .COMPLEX Qty: 120 1RF Dose Instruction: TAKE FOUR TABLETS BY MOUTH DAILY Rx Instructions: TAKE TWO and a HALF tab on , , Sat; FOUR TABLETS the rest of week hydrocodone-acetaminophen 5-325 mg tablet 1 tab PO Q8H PRN (Reason: pain) Qty: 7 0RF Discharge Orders: Discharge ED (Routine); Ordered 10/12/23 Ordered By: Abel Mccann Referrals: Justyna Alvarado FNP [Primary Care Provider] - Discharge Diet: Usual diet Discharge Activity: Increase activity as tolerated Patient Instructions: [place] Catheter Placement and Care (ED), How to Change a Catheter Drainage Bag (DC) Activity Restrictions/Additional Instructions: Follow-up with primary care in 3 to 5 days for recheck. Return to ED for new concerns or worsening symptoms such as fever greater than 100.4, or increased confusion. Coding Level of Care Code ED Clothing Presser for Chg Fwd Documented by User: Irving Oliva DO 10/13/23 01:50 HPI - Male Genitourinary General: Chief complaint: Urogenital-Male Stated complaint: fell bruise on back blood in stool Time Seen by Provider: 10/12/23 22:25 Related Data Previous Rx's Medication Instructions Recorded nitroglycerin 0.4 mg sublingual 0.4 mg sublingual Q5M PRN chest 05/01/22 tablet (Nitrostat) pain #30 tabs mdINR #1 ea 07/13/22 furosemide 20 mg tablet 20 mg PO DAILY #90 tabs 02/14/23 metoprolol tartrate 25 mg tablet 12.5 mg (1/2 x 25 mg) PO BID #180 02/14/23 tabs atorvastatin 40 mg tablet See Rx Instructions .Route 06/07/23 .COMPLEX #90 tabs isosorbide mononitrate 60 mg See Rx Instructions .Route 06/11/23 tablet,extended release 24 hr .COMPLEX #90 tabs sacubitril 97 mg-valsartan 103 mg 1 tab PO BID #90 tabs 06/18/23 tablet hydrocodone 5 mg-acetaminophen 325 1 tab PO Q8H PRN pain #7 tabs 07/06/23 mg tablet fast form, left wrist #1 ea 08/06/23 clopidogrel 75 mg tablet See Rx Instructions .Route 09/20/23 .COMPLEX #30 tabs warfarin 2 mg tablet See Rx Instructions .Route 10/10/23 .COMPLEX #120 tabs cephalexin 250 mg capsule 250 mg PO BID 7 days #14 caps 10/12/23 Allergies Allergy/AdvReac Type Severity Reaction Status Date / Time No Known Allergies Allergy Verified 10/12/23 22:01 [facility]: Medical History Warfarin anticoagulation History of urinary retention CAD (coronary artery disease) COPD (chronic obstructive pulmonary disease) Erectile dysfunction Depression CHF (congestive heart failure) History of CVA (cerebrovascular accident) Hx pulmonary embolism Pulmonary embolism CKD (chronic kidney disease) Hyperlipidemia Surgical History Hx of hernia repair Hx of appendectomy Hx of angioplasty Hx of urethrotomy Family History Mother , IN HER 60'S of unknown cause Chronic kidney disease (CKD) Diabetes Father , IN HIS 70'S Cancer Brother CAD (coronary artery disease) Denies family history of Clotting disorder Dementia Suicide Anesthesia complication Bleeding disorder Lung disease Stroke Social History Smoking and tobacco/nicotine status: former use of tobacco/nicotine Second hand smoke exposure: No Alcohol intake: never Substance/Drug Use: never Adopted: No Caregiver/support person: No Lives independently: Yes Household members: none Marital status: Single Current occupational status: disabled Do you think of yourself as: Straight/Heterosexual Current gender identity: Male Special miroslava needs: No Agree to transfusion: Yes Course Vital Signs: Vital signs: Vital Signs Temperature 98.1 F 10/12/23 21:57 Pulse Rate 82 10/12/23 23:56 Respiratory Rate 18 10/12/23 23:56 Blood Pressure 125/74 10/12/23 23:56 Pulse Oximetry 94 10/12/23 23:56 Oxygen Delivery Me thod Room Air 10/12/23 21:57 [facility] - Male Medical Decision Making 73-year-old male patient comes in today status post fall x 3 days. Spouse was concerned due to noticing some blood in patient's urine today. Patient appears chronically ill. Patient appears in no pain. Patient on exam notes bruising and abrasions noted to the right elbow, and flank bruising to the left flank area. Respirations are even lungs are clear to auscultation. Vital signs are normal. Patient does take antiplatelet clopidogrel and anticoagulated with warfarin. Differential diagnosis includes not limited to renal contusion, urinary tract infection, renal calculi, vertebral fracture, excessive anticoagulation. CBC noted some mild leukocytosis with 16.5. White blood cell count. CMP was unremarkable. INR was 2.7. PTT was slightly elevated at 48.9. CT of the abdomen and pelvis noted distended bladder with a bladder scan showing greater than 1000 mL. Patient had a urinary catheter placed with drainage of the bladder. Patient was given 2 g of Rocephin and will continue on cephalexin 250 twice a day for 7 days. Recommend follow-up in 1 week with primary care to have catheter removed. Patient and family both reported understanding agreed to plan. This patient was originally seen by MACIEJ Adame.? I agree with his history, evaluation, and treatment. Lab Data 10/12/23 22:39 10/12/23 22:39 Radiology Impressions Abdomen/Pelvis CT 10/12/23 22:26 IMPRESSION: 1. Prominent distension of the urinary bladder with mild surrounding fat stranding which may represent cystitis in the appropriate clinical setting. No hydronephrosis bilaterally. 2. Mild prostatomegaly with associated calcifications. Lobulated appearance of the seminal vesicles. 3. Severe diffuse atherosclerotic calcifications including coronary artery calcifications. COMMENTS: Consistent with the [employer]'s Incidental Findings Committee white paper (J Am Steve Radiol 2018): Any incidental renal lesion less than 1 cm or classified as too small to characterize, or any incidental cystic renal lesion characterized as simple-appearing, is likely benign. No follow-up imaging is recommended for these lesions per consensus recommendations based on imaging criteria. Laboratory Results WBC 16.55 10^3/uL (3.29-11.43) H 10/12/23 22:39 RBC 4.16 10^6/uL (3.85-5.65) 10/12/23 22:39 Hgb 13.50 g/dL (11.27-16.99) 10/12/23 22:39 Hct 40.1 % (37-53) 10/12/23 22:39 MCV 96.4 fl (82-101) 10/12/23 22:39 MCH 32.5 pg (27-33) 10/12/23 22:39 MCHC 33.7 g/dL (30-55) 10/12/23 22:39 RDW 14.3 % (12.1-15.1) 10/12/23 22:39 Plt Count 400 10^3/cmm (157-399) H 10/12/23 22:39 MPV 9.1 fL (7.4-10.4) 10/12/23 22:39 Neut % (Auto) 71.5 % 10/12/23 22:39 Lymph % (Auto) 17.0 % 10/12/23 22:39 [place] % (Auto) 9.0 % 10/12/23 22:39 Eos % (Auto) 1.4 % 10/12/23 22:39 Baso % (Auto) 0.7 % 10/12/23 22:39 Neut # (Auto) 11.85 10^3/uL (1.8-7.7) H 10/12/23 22:39 Lymph # (Auto) 2.8 10^3/uL (0.8-4.8) 10/12/23 22:39 [place] # (Auto) 1.5 10^3/uL (0.2-0.9) H 10/12/23 22:39 Eos # (Auto) 0.2 10^3/uL (0.0-0.8) 10/12/23 22:39 Baso # (Auto) 0.1 10^3/uL (0.0-0.1) 10/12/23 22:39 Nucleated RBC % (auto) 0 % 10/12/23 22:39 Nucleated RBCs # 0.0 /100WBC 10/12/23 22:39 PT 30.00 SECONDS (12.1-14.9) H 10/12/23 22:39 INR 2.73 (0.8-1.2) H 10/12/23 22:39 APTT 48.9 SECONDS (23.9-36.7) H 10/12/23 22:39 Sodium 137 mmol/L (136-145) 10/12/23 22:39 Potassium 3.8 mmol/L (3.5-5.1) 10/12/23 22:39 Chloride 100 mmol/L (98-107) 10/12/23 22:39 Carbon Dioxide 24 mmol/L (22-29) 10/12/23 22:39 Anion Gap 16.8 (5-19) 10/12/23 22:39 BUN 10 mg/dL (8-23) 10/12/23 22:39 Creatinine 1.1 mg/dL (0.7-1.2) 10/12/23 22:39 GFR Calculation Not Reportable 10/12/23 22:39 Glucose 121 mg/dL (65-115) H 10/12/23 22:39 Calculated Osmolality 284 mOsm/kg (285-295) L 10/12/23 22:39 Calcium 8.9 mg/dL (8.5-10.5) 10/12/23 22:39 Total Bilirubin 1.1 mg/dL (0.15-1.2) 10/12/23 22:39 AST 27 U/L (0-40) 10/12/23 22:39 ALT 16 U/L (0-41) 10/12/23 22:39 Alkaline Phosphatase 128 U/L (40-130) 10/12/23 22:39 Total Protein 7.2 g/dL (6.6-8.7) 10/12/23 22:39 Albumin 3.6 g/dL (3.5-5.2) 10/12/23 22:39 Globulin 3.6 g/dL (1.3-4.6) 10/12/23 22:39 Urine Color Other (Yellow) A 10/12/23 23:13 Urine Appearance Cloudy (CLEAR) A 10/12/23 23:13 Urine pH 5.5 (5-7) 10/12/23 23:13 Ur Specific [place] 1.014 (1.005-1.030) 10/12/23 23:13 Urine Protein 3+ (Negative) A 10/12/23 23:13 Urine Glucose (UA) Negative (Normal) 10/12/23 23:13 Urine Ketones Negative (Negative) 10/12/23 23:13 Urine Blood 3+ (Negative) A 10/12/23 23:13 Urine Nitrate Negative (Negative) 10/12/23 23:13 Urine Bilirubin Negative (Negative) 10/12/23 23:13 Urine Urobilinogen 1.0 mg/dL (Negative) 10/12/23 23:13 Ur Leukocyte Esterase 2+ (Negative) A 10/12/23 23:13 Urine RBC >100 /hpf (0-2) H 10/12/23 23:13 Urine WBC >100 /hpf (0-5) H 10/12/23 23:13 Ur Squamous Epith Cells 0-5 /hpf (0-5) 10/12/23 23:13 Amorphous Sediment 1+ /hpf 10/12/23 23:13 Urine Bacteria 2+ /hpf (NONE) H 10/12/23 23:13 Hyaline Casts 0.81 /lpf 10/12/23 23:13 Discharge Plan Discharge Patient Disposition: Home Clinical Impression: Acute cystitis with hematuria, Benign prostatic hyperplasia with urinary retention Condition: Stable Prescriptions: New cephalexin 250 mg capsule 250 mg PO BID 7 Days Qty: 14 0RF No Action nitroglycerin [Nitrostat] 0.4 mg tablet, sublingual 0.4 mg SUBLINGUAL Q5M PRN (Reason: chest pain) Qty: 30 2RF (DME) fast form, left wrist See Rx Instructions .Route .MEDSUPPLY Qty: 1 0RF Rx Instructions: As directed (DEANNA) mdINR See Rx Instructions .Route .MEDSUPPLY Qty: 1 0RF Rx Instructions: As directed metoprolol tartrate 25 mg tablet 12.5 mg PO BID Qty: 180 1RF furosemide 20 mg tablet 20 mg PO DAILY Qty: 90 3RF atorvastatin 40 mg tablet See Rx Instructions .ROUTE .COMPLEX Qty: 90 1RF Dose Instruction: TAKE ONE TABLET BY MOUTH DAILY Rx Instructions: TAKE ONE TABLET BY MOUTH DAILY isosorbide mononitrate 60 mg tablet extended release 24 hr See Rx Instructions .ROUTE .COMPLEX Qty: 90 0RF Dose Instruction: TAKE ONE TABLET BY MOUTH EVERY DAY Rx Instructions: TAKE ONE TABLET BY MOUTH EVERY DAY sacubitril-valsartan 97-103 mg tablet 1 tab PO BID Qty: 90 3RF clopidogrel 75 mg tablet See Rx Instructions .ROUTE .COMPLEX Qty: 30 0RF Dose Instruction: TAKE ONE TABLET BY MOUTH DAILY Rx Instructions: TAKE ONE TABLET BY MOUTH DAILY warfarin 2 mg tablet See Rx Instructions .ROUTE .COMPLEX Qty: 120 1RF Dose Instruction: TAKE FOUR TABLETS BY MOUTH DAILY Rx Instructions: TAKE TWO and a HALF tab on , , Sat; FOUR TABLETS the rest of week hydrocodone-acetaminophen 5-325 mg tablet 1 tab PO Q8H PRN (Reason: pain) Qty: 7 0RF Discharge Orders: Discharge ED (Routine); Ordered 10/12/23 Ordered By: Abel Mccann Referrals: Justyna Alvarado FNP [Primary Care Provider] - Discharge Diet: Usual diet Discharge Activity: Increase activity as tolerated Patient Instructions: [place] Catheter Placement and Care (ED), How to Change a Catheter Drainage Bag (DC) Activity Restrictions/Additional Instructions: Follow-up with primary care in 3 to 5 days for recheck. Return to ED for new concerns or worsening symptoms such as fever greater than 100.4, or increased confusion. Coding Level of Care Code ED Clothing Presser for Milana Cárdenas
[2023-10-12 22:42] LABS: Basophils # 0.1 10^3/uL (0.0-0.1); Basophils % 0.7 %; Eosinophils # 0.2 10^3/uL (0.0-0.8); Eosinophils % 1.4 %; Hematocrit 40.1 % (37-53); Lymphocytes # 2.8 10^3/uL (0.8-4.8); Mean Corpuscular HGB Conc 33.7 g/dL (30-55); Mean Corpuscular Hemoglobin 32.5 pg (27-33); Mean Corpuscular Volume 96.4 fl (82-101); Mean Platelet Volume 9.1 fL (7.4-10.4); Monocytes # 1.5 10^3/uL (0.2-0.9); Neutrophils # 11.85 10^3/uL (1.8-7.7); Neutrophils % 71.5 %; Nucleated Red Blood Cells % 0 %; Platelet Count 400 10^3/cmm (157-399); Red Blood Count 4.16 10^6/uL (3.85-5.65); Red Cell Distribution Width 14.3 % (12.1-15.1); White Blood Count 16.55 10^3/uL (3.29-11.43)
[2023-10-12 22:55] LABS: INR 2.73 (0.8-1.2)
[2023-10-12 22:56] LABS: Partial Thromboplastin Time 48.9 SECONDS (23.9-36.7)
[2023-10-12 23:03] LABS: Alanine Aminotransferase 16 U/L (0-41); Albumin Level 3.6 g/dL (3.5-5.2); Alkaline Phosphatase 128 U/L (40-130); Anion Gap 16.8 (5-19); Aspartate Amino Transferase 27 U/L (0-40); Blood Urea Nitrogen 10 mg/dL (8-23); Calcium 8.9 mg/dL (8.5-10.5); Carbon Dioxide 24 mmol/L (22-29); Chloride 100 mmol/L (98-107); Creatinine Clr Calc Pharmacy 81.2622; Globulin 3.6 g/dL (1.3-4.6); Glucose 121 mg/dL (65-115); Osmolality Calculated 284 mOsm/kg (285-295); Potassium 3.8 mmol/L (3.5-5.1); Sodium 137 mmol/L (136-145); Total Bilirubin 1.1 mg/dL (0.15-1.2); Total Protein 7.2 g/dL (6.6-8.7)
[2023-10-12 23:26] LABS: Charge for UA Resulting for Rev
[2023-10-12 23:29] LABS: Bilirubin Urine Negative (Negative); Blood Urine 3+ (Negative); Glucose Urine UA Negative (Normal); Ketones Urine Negative (Negative); Leukocyte Esterase Urine 2+ (Negative); Nitrate Urine Negative (Negative); Protein Urine 3+ (Negative); Specific Gravity, Urine 1.014 (1.005-1.030); Urine Appearance Cloudy (CLEAR); pH Urine 5.5 (5-7)
[2023-10-12 23:34] LABS: Bacteria Urine 2+ /hpf; Hyaline Casts Urine 0.81 /lpf; Squamous Epithelial Cell Urine 0-5 /hpf (0-5); WBC Urine >100 /hpf (0-5)
[2023-10-12 23:36] LABS: RBC Urine >100 /hpf (0-2)
[2023-10-12 23:37] LABS: Add Urine Culture? Yes; Amorphous Sediment Urine 1+ /hpf; Urine Color Other (Yellow)
[2023-10-12] MEDS: cefTRIAXone 2,000 mg SDV 2000 MG IVP (23:53)
[2023-10-12] MEDS: HYDROcodone-acetaminophen 5-325 mg Tablet 1 TAB PO (23:53)
[2023-10-12 23:56] VITALS: BP 125/74; PULSE 82; RESP 18; O2SAT 94
== END 2023-10-13 00:13 | disposition home or self-care (01) ==
PROVIDERS: Emergency Provider Nurse Practitioner Family; PCP Nurse Practitioner Family
DX: N40.1 Benign prostatic hyperplasia with lower urinary tract symptoms (principal); R33.8 Other retention of urine; N30.01 Acute cystitis with hematuria; Z79.02 Long term (current) use of antithrombotics/antiplatelets; Z79.01 Long term (current) use of anticoagulants; Z87.891 Personal history of nicotine dependence; I25.10 Atherosclerotic heart disease of native coronary artery without angina pectoris; J44.9 Chronic obstructive pulmonary disease, unspecified; N18.9 Chronic kidney disease, unspecified; I50.9 Heart failure, unspecified; Z86.73 Personal history of transient ischemic attack (TIA), and cerebral infarction without residual deficits; E78.5 Hyperlipidemia, unspecified
CPT/HCPCS: 51701; 51702; 51798; 74176; 80053; 81003; 81015; 85025; 85610; 85730; 87086; 96374; 99285; J0696

== ENCOUNTER → 2023-10-24 11:39 | Outpatient (BNVA) | payer MEDICARE, SELFPAY | PROVIDERS: PCP Nurse Practitioner Family; Visit Provider Nurse Practitioner Family | DX: I50.9 Heart failure, unspecified (principal); I10 Essential (primary) hypertension | CPT/HCPCS: 80053; 80061; 85025; 85610 ==